=== PATIENT | male | born 1990 | race Caucasian/White ===

== ENCOUNTER 2017-06-04 15:44 | Inpatient (IN) | payer BC, OTHER ==
[~2017-06-04] VITALS: Ht 180.3 cm; Wt 83.9 kg
[2017-06-04 17:10] VITALS: BP 133/75
[2017-06-04] MEDS ORDERED: DICYCLOMINE HCL 20 MG TABLET PO PRN (18:00)
[2017-06-04] MEDS ORDERED: MIRALAX 17 GM POWD.PACK PO PRN (18:00)
[2017-06-04] MEDS ORDERED: CLONIDINE HCL 0.1 MG TABLET PO PRN (18:00)
[2017-06-04] MEDS ORDERED: MAGNESIUM HYDROXIDE 30 ML LIQUID UDC PO PRN (18:00)
[2017-06-04] MEDS ORDERED: ONDANSETRON ODT 4 MG TAB.RAPDIS SL PRN (18:00)
[2017-06-04] MEDS ORDERED: ACETAMINOPHEN 325 MG TABLET PO PRN (18:00)
[2017-06-04] MEDS ORDERED: LORAZEPAM 1 MG TABLET PO PRN (18:00)
[2017-06-04] MEDS ORDERED: MAG HYDROX/AL HYDROX/SIMETH 30 ML LIQUID UDC PO PRN (18:00)
[2017-06-04] MEDS ORDERED: LOPERAMIDE HCL 2 MG CAPSULE PO PRN ×2 (18:00)
[2017-06-04] MEDS ORDERED: BUPRENORPHINE HCL 2 MG TAB.SUBL SL PRN (18:00)
[2017-06-04] MEDS ORDERED: ONDANSETRON 4 MG/2 ML VIAL IM PRN (18:00)
[2017-06-04] MEDS ORDERED: METHOCARBAMOL 750 MG TABLET PO PRN (18:00)
[2017-06-04] MEDS ORDERED: NICOTINE 14 MG/24HR PATCH TD PRN (18:00)
[2017-06-04] MEDS ORDERED: HYDROXYZINE PAMOATE 25 MG CAPSULE PO PRN (18:00)
[2017-06-04] MEDS ORDERED: IBUPROFEN 600 MG TABLET PO PRN (18:00)
[2017-06-04] MEDS ORDERED: NICOTINE POLACRILEX 4 MG GUM-PK OF TEN BC PRN (18:00)
[2017-06-04] MEDS: BUPRENORPHINE HCL 2 MG TAB.SUBL SL SCH ×2 (18:15→21:19)
[2017-06-04 18:19] LABS: *AMPHETAMINE, URINE NEGATIVE (NEGATIVE); *BARBITURATE, URINE NEGATIVE (NEGATIVE); *CANNABINOID, URINE NEGATIVE (NEGATIVE); *COCCAINE, URINE NEGATIVE (NEGATIVE); *OPIATE, URINE POSITIVE (NEGATIVE); *PHENCYCLIDINE SCREEN,URINE NEGATIVE (NEGATIVE)
[2017-06-04 20:00] VITALS: BP 125/73
[2017-06-04] MEDS: GABAPENTIN 300 MG CAPSULE PO SCH (21:18)
[2017-06-04 21:23] LABS: BASOPHILS % (AUTO) 0.7 % (0.0-2.0); EOSINOPHILS # (AUTO) 0.1 K/uL (0.0-0.7); EOSINOPHILS % (AUTO) 1.2 % (0.0-7.0); HEMATOCRIT 50.8 % (36.7-47.1); HEMOGLOBIN 17.4 g/dL (12.5-16.3); LYMPHOCYTES # (AUTO) 1.7 K/uL (20.0-40.0); MEAN CORPUSCULAR HEMOGLOBIN 30.4 uug (23.8-33.4); MEAN CORPUSCULAR HGB CONC 34 g/dL (32.5-36.3); MONOCYTES # (AUTO) 0.8 K/uL (2.0-10.0); MONOCYTES % (AUTO) 11.5 % (0.0-11.0); NEUTROPHILS # (AUTO) 4.4 K/uL (1.8-8.9); NEUTROPHILS % (AUTO) 62.6 % (38.5-71.5); PLATELET COUNT (AUTO) 166 K/uL (152-348)
[2017-06-04 21:30] LABS: ALANINE AMINOTRANSFERASE 31 U/L (16-63); ALKALINE PHOSPHATASE 86 U/L (50-136); ASPARTATE AMINOTRANSFERASE 25 U/L (15-37); BILIRUBIN,TOTAL 0.4 mg/dL (0.2-1.0); CARBON DIOXIDE 34 mmol/L (21-32); CHLORIDE 100 mmol/L (98-107); CREATININE 1.3 mg/dL (0.6-1.3); GLUCOSE 75 mg/dL (74-106); POTASSIUM 4.1 mmol/L (3.5-5.1); TOTAL PROTEIN, SERUM 8.2 g/dL (6.4-8.2); UREA NITROGEN, BLOOD 16 mg/dL (7-18)
[2017-06-04 21:39] LABS: ETHANOL < 3 MG/DL (0-0)
[2017-06-04] MEDS: diphenhydrAMINE 50 MG CAPSULE PO PRN (23:32)
[2017-06-05 00:01] VITALS: BP 122/80
[2017-06-05 04:00] VITALS: BP 132/80
[2017-06-05 08:00] VITALS: BP 97/60
[2017-06-05] MEDS ORDERED: TUBERCULIN,PURIF.PROT.DERIV. 5 TU/0.1 ML TEST ID ONE (09:00)
[2017-06-05] MEDS ORDERED: BUPRENORPHINE HCL 2 MG TAB.SUBL SL SCH (09:00)
[2017-06-05] MEDS: GABAPENTIN 300 MG CAPSULE PO SCH ×3 (09:55→20:57)
[2017-06-05 12:00] VITALS: BP 100/62
[2017-06-05] MEDS: BUPRENORPHINE HCL 2 MG TAB.SUBL SL SCH ×2 (15:34→20:57)
[2017-06-05] MEDS: BACLOFEN 10 MG TABLET PO SCH ×2 (15:34→20:57)
[2017-06-05 16:00] VITALS: BP 117/73
[2017-06-05 20:14] VITALS: BP 133/84
[2017-06-05] MEDS: CLONIDINE HCL 0.1 MG TABLET PO SCH (20:57)
[2017-06-05] MEDS ORDERED: LORAZEPAM 1 MG TABLET PO SCH (21:00)
[2017-06-05] MEDS: diphenhydrAMINE 50 MG CAPSULE PO PRN (23:12)
[2017-06-06 00:17] VITALS: BP 125/59
[2017-06-06 04:41] VITALS: BP 122/64
[2017-06-06 08:00] VITALS: BP 118/64
[2017-06-06 08:06] LABS: HEPATITIS B SURFACE AG Negative (Negative)
[2017-06-06] MEDS: BACLOFEN 10 MG TABLET PO SCH (08:49)
[2017-06-06] MEDS: GABAPENTIN 300 MG CAPSULE PO SCH ×3 (08:49→20:59)
[2017-06-06] MEDS: BUPRENORPHINE HCL 2 MG TAB.SUBL SL SCH ×3 (08:49→20:59)
[2017-06-06] MEDS: CLONIDINE HCL 0.1 MG TABLET PO SCH ×2 (08:49→14:30)
[2017-06-06 12:00] VITALS: BP 112/86
[2017-06-06] MEDS: BACLOFEN 20 MG TABLET PO SCH ×2 (14:29→20:59)
[2017-06-06 16:00] VITALS: BP 101/53
[2017-06-06 20:12] VITALS: BP 107/59
[2017-06-06] MEDS: QUETIAPINE FUMARATE 25 MG TABLET PO SCH (20:58)
[2017-06-06] MEDS: CLONIDINE HCL 0.2 MG TABLET PO SCH (20:58)
[2017-06-07] VITALS (7 sets, daily range): BP systolic 103–126; BP diastolic 50–76
[2017-06-07] MEDS ORDERED: BUPRENORPHINE HCL 2 MG TAB.SUBL SL SCH (09:00)
[2017-06-07] MEDS: QUETIAPINE FUMARATE 25 MG TABLET PO SCH ×3 (09:06→21:30)
[2017-06-07] MEDS: BACLOFEN 20 MG TABLET PO SCH ×3 (09:06→21:29)
[2017-06-07] MEDS: CLONIDINE HCL 0.1 MG TABLET PO SCH ×2 (09:06→14:03)
[2017-06-07] MEDS: GABAPENTIN 300 MG CAPSULE PO SCH ×3 (09:19→21:29)
[2017-06-07] MEDS ORDERED: QUET25TA PO (17:39)
[2017-06-07] MEDS ORDERED: GABA-534 PO ×2 (17:39)
[2017-06-07] MEDS ORDERED: IBUP-1955 PO (17:39)
[2017-06-07] MEDS ORDERED: CLON0.1T14 PO (17:39)
[2017-06-07] MEDS ORDERED: DICY20TA28 PO (17:39)
[2017-06-07] MEDS ORDERED: HYDR-3895 PO (17:39)
[2017-06-07] MEDS ORDERED: BACL20TA PO (17:39)
[2017-06-07] MEDS ORDERED: DIPH50CA37 PO (17:39)
[2017-06-07] MEDS: CLONIDINE HCL 0.2 MG TABLET PO SCH (21:29)
[2017-06-08] MEDS: BACLOFEN 20 MG TABLET PO SCH (08:10)
[2017-06-08] MEDS: CLONIDINE HCL 0.1 MG TABLET PO SCH (08:10)
[2017-06-08] MEDS: GABAPENTIN 300 MG CAPSULE PO SCH (08:10)
[2017-06-08 08:20] VITALS: BP 100/61
[2017-06-08] MEDS ORDERED: QUETIAPINE FUMARATE 25 MG TABLET PO PRN (09:00)
== END 2017-06-08 09:37 | disposition other institution (70) | DRG 895 ==
LOC: SRC 15:44
PROVIDERS: ADMIT Internal Medicine; ATTEND Internal Medicine
PROC: HZ2ZZZZ Detoxification Services for Substance Abuse Treatment (ICD-10-PCS; principal; 2017-06-04)
PROC: HZ41ZZZ Group Counseling for Substance Abuse Treatment, Behavioral (ICD-10-PCS; 2017-06-07)
DX: F11.23 Opioid dependence with withdrawal (principal); E87.3 Alkalosis; F17.210 Nicotine dependence, cigarettes, uncomplicated; Z91.89 Other specified personal risk factors, not elsewhere classified; Z81.1 Family history of alcohol abuse and dependence; F41.9 Anxiety disorder, unspecified; G47.00 Insomnia, unspecified; F15.10 Other stimulant abuse, uncomplicated; E86.0 Dehydration
CPT/HCPCS: 36415; 70030-TC; 80307; 80361; 83735; 85025; 86580; 86592; 86705; 86803; 87340; 87806; A4663; G0480; Q0163

== ENCOUNTER 2017-09-11 08:12 | Inpatient (IN) | payer BC, OTHER ==
[~2017-09-11] VITALS: Ht 180.3 cm; Wt 82.6 kg
[~2017-09-11 08:12] MED LIST: BACL20TA PO; CLON0.1T14 PO; DICY20TA28 PO; DIPH50CA37 PO; GABA-534 PO; HYDR-3895 PO; IBUP-1955 PO; QUET25TA PO
--- NOTE | 2017-09-11 17:10 | NUR ---
INTAKE ASSESSMENT Patient is 27 year old male alert oriented x4 admitted for Heroin Withdrawal. Vital signs B/P 118/69, HR-87, RR-17, TEMP-98.4, SPO2-98%, PAIN -0/10. Patient denies any history of seizure. Patient did not bring any medication from home with him. Patient is avoidant and unable to make eye contact. Patient was seen by Dr. Rucker. Educated patient about unit protocol. Will be admitted on the third floor.
--- NOTE | 2017-09-11 17:20 | NUR ---
ADMISSION NOTE ALLERGY-NKA STATUS-FULL CODE HEIGHT-5'11 WEIGHT-182IBS COWS-5 PCP-NONE PMH-NONE Patient is 27 year old male patient admitted for Heroin withdrawal. Patient is alert and oriented X4, full code with NKA. Vital signs: WNL. Patient denies any SOB and chest pain. Pt has a flat affect, anxious, depressed, labile, is disheveled. Patient presents anhedonia, dysphoria. Denies sweating, n/v/d, stuffy nose, hallucinations at this time. Denies suicidal and homicidal ideation. Patient did not bring any home medications. Pt states that he attended a detox called [facility] in [place] 2 years ago and [facility] in May 2017 that he has had a period of sobriety for 6 months over 4 years ago. Patient states, "I really want to get sober." Patient verbalized he had multiple attempts at sobriety and struggled to stay sober. Patient also verbalized he wants a better life and states he is committed to the process. Substance use history per patient report: 1) Heroin - Patient reports using 1 gm for 2 months daily on regular basis, last use was 09/10/17 (used 1 gm via IV), Patients skin is intact. Educated pt on treatment plan and medication regimen. Educated patient on unit rules. Safety measures in place. Will continue to monitor.
[2017-09-11] MEDS ORDERED: LOPERAMIDE HCL 2 MG CAPSULE PO PRN ×2 (17:30)
[2017-09-11] MEDS ORDERED: ONDANSETRON ODT 4 MG TAB.RAPDIS SL PRN (17:30)
[2017-09-11] MEDS ORDERED: ONDANSETRON 4 MG/2 ML VIAL IM PRN (17:30)
[2017-09-11] MEDS ORDERED: DICYCLOMINE HCL 20 MG TABLET PO PRN (17:30)
[2017-09-11] MEDS ORDERED: BUPRENORPHINE HCL 2 MG TAB.SUBL SL PRN (17:30)
[2017-09-11] MEDS ORDERED: diphenhydrAMINE 50 MG CAPSULE PO PRN (17:30)
[2017-09-11] MEDS ORDERED: HYDROXYZINE PAMOATE 25 MG CAPSULE PO PRN (17:30)
[2017-09-11] MEDS ORDERED: ACETAMINOPHEN 325 MG TABLET PO PRN (17:30)
[2017-09-11] MEDS ORDERED: IBUPROFEN 600 MG TABLET PO PRN (17:30)
[2017-09-11] MEDS ORDERED: MIRALAX 17 GM POWD.PACK PO PRN (17:30)
[2017-09-11] MEDS ORDERED: MAGNESIUM HYDROXIDE 30 ML LIQUID UDC PO PRN (17:30)
[2017-09-11] MEDS ORDERED: METHOCARBAMOL 750 MG TABLET PO PRN (17:30)
[2017-09-11] MEDS ORDERED: CLONIDINE HCL 0.1 MG TABLET PO PRN (17:30)
[2017-09-11] MEDS ORDERED: LORAZEPAM 1 MG TABLET PO PRN (17:30)
--- NOTE | 2017-09-11 18:55 | NUR ---
END OF SHIFT NOTE Gave report to night nurse, 27 year old male admitted for Heroin withdrawal. Patient currently not on any taper but PRN'S available for increased s/s of withdrawal. Patient currently on room restriction for UDS not provided. Vital signs WNL. All safety measures in place. Patient endorsed to night nurse in stable condition.
--- NOTE | 2017-09-11 19:30 | NUR ---
Start of Shift Pt is a 27 y/o male admitted today, 09/11/17 for medically managed withdrawal/detox from Heroin. Pt is found in bed, supine with HOB 45 degrees, watching tv. Pt cooperative, able to answer questions and respond appropriately. Appears depressed, worried with avoidant eye contact, voice is low. U/A sample requested, says that within hour he expects to provide it, room restrictions will end at that time. No scheduled meds at this time for evening, PRNs available. No c/os at this time. Will continue to monitor and promptly attend to all pt needs.
[2017-09-11 20:00] VITALS: BP 108/63
[2017-09-11 20:09] LABS: BASOPHILS # (AUTO) 0.1 K/uL (0.0-8.0); BASOPHILS % (AUTO) 0.8 % (0.0-2.0); EOSINOPHILS # (AUTO) 0.2 K/uL (0.0-0.7); EOSINOPHILS % (AUTO) 3.5 % (0.0-7.0); HEMATOCRIT 46.2 % (36.7-47.1); LYMPHOCYTES # (AUTO) 1.8 K/uL (20.0-40.0); LYMPHOCYTES % (AUTO) 28.4 % (20.5-51.5); MEAN CORPUSCULAR HEMOGLOBIN 30.4 uug (23.8-33.4); MEAN CORPUSCULAR HGB CONC 35 g/dL (32.5-36.3); MEAN CORPUSCULAR VOLUME 87.9 fL (73.0-96.2); MONOCYTES % (AUTO) 15.4 % (0.0-11.0); NEUTROPHILS # (AUTO) 3.2 K/uL (1.8-8.9); NEUTROPHILS % (AUTO) 51.9 % (38.5-71.5); PLATELET COUNT (AUTO) 141 K/uL (152-348); RED BLOOD CELL COUNT(AUTO) 5.26 MIL/uL (4.06-5.63); WHITE BLOOD COUNT (AUTO) 6.2 K/uL (3.6-10.2)
[2017-09-11 20:19] LABS: ALANINE AMINOTRANSFERASE 33 U/L (16-63); ALKALINE PHOSPHATASE 82 U/L (50-136); ASPARTATE AMINOTRANSFERASE 26 U/L (15-37); BILIRUBIN,TOTAL 0.6 mg/dL (0.2-1.0); CARBON DIOXIDE 31 mmol/L (21-32); CHLORIDE 103 mmol/L (98-107); CREATININE 1.3 mg/dL (0.6-1.3); GLUCOSE 113 mg/dL (74-106); POTASSIUM 3.8 mmol/L (3.5-5.1); UREA NITROGEN, BLOOD 22 mg/dL (7-18)
[2017-09-11 20:22] LABS: ETHANOL < 3 MG/DL (0-0)
[2017-09-11 20:28] LABS: BAND % (MANUAL) 6 % (0-10); EOSINOPHILS % (MANUAL) 3 % (0-8); LYMPHOCYTES % (MANUAL) 28 % (20-40); MONOCYTES % (MANUAL) 13 % (2-10); NEUTROPHILS % (MANUAL) 50 % (42-75)
--- NOTE | 2017-09-11 21:30 | NUR ---
U/A Pt awakened and asked if able to provide U/A sample. Attempt made by pt but unable to provide at this time. Pt returns to bed and proceeds to eat, fluid intake encouraged but no attempt at fluids made. Will continue to monitor, seeking U/A sample, evening Subutex and Ativan withheld until sample provided, and promptly attending to all pt needs
[2017-09-11] MEDS ORDERED: LORAZEPAM 1 MG TABLET PO SCH (22:00)
[2017-09-11] MEDS ORDERED: BUPRENORPHINE HCL 2 MG TAB.SUBL SL SCH (22:00)
[2017-09-12] VITALS: BP 118/62
[2017-09-12 04:00] VITALS: BP 125/82
--- NOTE | 2017-09-12 06:40 | NUR ---
End of Shift Pt is a 27 y/o male admitted today, 09/11/17 for medically managed withdrawal/detox from Heroin. Pt unable to provide U/A. Pt attempted on 2 occassions to provide U/A but was unsuccessful on both. Scheduled Subutex/Ativan held. PRN meds for shift were none . 0400 COWS 3, HR 58 with BP 125/82. Pt slept for 8 hours, with 500 intake, 0 voids and 0 BMs. Will continue to monitor and promptly attend to all pt needs.
--- NOTE | 2017-09-12 07:40 | NUR ---
START OF SHIFT NOTE Received report from night nurse, 27 year old male admitted for Heroin withdrawal. Per endorsement patient did not receive any PRN'S and slept for 8 hours, Last COWS was-3. Patient cont with room restriction and awaiting for UA for urine drug screen. Encourage PO fluids as tolerated. Received patient alert awake anxious agitated, body aches, restless, bilateral hand tremors noted. Patient is due for schedule medications. Educated patient with current plan of care of medications regimen and importance of attending groups and activities with good verbal understanding. Safety measures in place. Will cont with plan of care.
[2017-09-12 08:00] VITALS: BP 131/67
[2017-09-12] MEDS ORDERED: TUBERCULIN,PURIF.PROT.DERIV. 5 TU/0.1 ML TEST ID ONE (09:00)
[2017-09-12] MEDS: BUPRENORPHINE HCL 2 MG TAB.SUBL SL SCH ×3 (09:19→20:42)
[2017-09-12] MEDS: GABAPENTIN 300 MG CAPSULE PO SCH ×3 (09:19→20:42)
[2017-09-12 09:57] LABS: *AMPHETAMINE, URINE POSITIVE (NEGATIVE); *BARBITURATE, URINE NEGATIVE (NEGATIVE); *CANNABINOID, URINE NEGATIVE (NEGATIVE); *COCCAINE, URINE NEGATIVE (NEGATIVE); *OPIATE, URINE POSITIVE (NEGATIVE); *PHENCYCLIDINE SCREEN,URINE NEGATIVE (NEGATIVE)
[2017-09-12 12:00] VITALS: BP 119/72
[2017-09-12 16:00] VITALS: BP 101/62
--- NOTE | 2017-09-12 19:10 | NUR ---
END OF SHIFT NOTE Gave report to night nurse, Patient admitted for Heroin withdrawal and presented with anxiety, agitation, restless, runny nose, yawning, body aches, bilateral hand tremors noted. Patient started on Subutex taper tolerated well. Patient did not receive any PRN during shift. Vital signs remained WNL. Skin intact warm and dry to touch. Patient rested in his room most of the shift. Encouraged patient to attend groups and activities to learn new coping skills. Encourage PO fluids as tolerated. All safety measures in place. Patient endorsed to night nurse in stable condition.
--- NOTE | 2017-09-12 19:30 | NUR ---
START OF SHIFT Pt is a 27 y/o male admitted on 09/11/17 for opiate withdrawal. Pt is on a 5 day Subutex taper that started on 09/12/17, tolerating well. Last COWS 11 and no PRNs administered during day shift. Upon assessment pt presents with anxiety, restlessness, sweats, runny nose, teary eyes and is withdrawn. Medications due. Safety measures in place. Call light within reach. Will continue to monitor.
[2017-09-12 20:00] VITALS: BP 107/64
[2017-09-12] MEDS: QUETIAPINE FUMARATE 25 MG TABLET PO SCH (20:42)
--- NOTE | 2017-09-12 23:45 | NUR ---
Continuation of Care Patient received. patient is in bed sleeping. breathing even and non labored. Per endorsement. patient continues on a modified 5 day Subutex taper. No PRN medications administered. All routine medications administered as ordered. Last noted COWS 8. All needs attended to promptly. Will continue plan of care as ordered.
[2017-09-13 00:24] VITALS: BP 97/58
[2017-09-13 04:30] VITALS: BP 99/60
--- NOTE | 2017-09-13 07:13 | NUR ---
End of Shift Patient is in bed sleeping. Breathing even and non labored. Patient continues on a modified 5 day Subutex taper. No PRN medications administered. All routine medications administered as ordered. Last noted COWS 8. All needs attended to promptly. Will endorse to continue plan of care as ordered.
--- NOTE | 2017-09-13 07:30 | NUR ---
Start of Shift Notes: Received patient in his room. Laying in bed. Eyes closed. Breathing even and unlabored. Arousable when his name is called. Appears restless while in bed. Patient states "Im alright." Patient is a 27 year old male admitted for opiate withdrawal who was placed on 5-day Subutex taper. No PRNs given during the night. Last COWS 8, Slept for 8 hours. Educated patient on his current plan of care for the day and his medication regimen. Encouraged oral fluid intake and encouraged group participation to learn new skills to prevent relapse. Will continue to monitor.
[2017-09-13 08:00] VITALS: BP 116/55
[2017-09-13] MEDS ORDERED: BUPRENORPHINE HCL 2 MG TAB.SUBL SL SCH (09:00)
[2017-09-13] MEDS: GABAPENTIN 300 MG CAPSULE PO SCH ×3 (09:01→21:06)
[2017-09-13 09:07] LABS: HEPATITIS B SURFACE AG Negative (Negative)
[2017-09-13] MEDS ORDERED: KETOROLAC TROMETHAMINE 30 MG INJ IM PRN (11:15)
[2017-09-13 12:00] VITALS: BP 109/57
[2017-09-13] MEDS: BUPRENORPHINE HCL 2 MG TAB.SUBL SL SCH ×2 (14:03→21:06)
--- NOTE | 2017-09-13 16:00 | NUR ---
Transfer of Care: Care transferred to receiving nurse at this time. All pertinent information discussed. Patient is currently in his room at this time. VS stable. Last COWS 8 at 1400. All due medications received. No PRN medications given. Will continue to monitor.
--- NOTE | 2017-09-13 16:01 | NUR ---
ASSUMED CARE Assumed care for patient from nurse, all pertinent information was discussed. will continue to monitor closely. safety measures in place.
[2017-09-13 17:26] VITALS: BP 111/58
--- NOTE | 2017-09-13 18:59 | NUR ---
END OF SHIFT Patient continues under close observation, continues on 5 day Subutex taper, currently on day 2 of taper. per staff nurse, initial cow score of: 12, presenting with: restlessness, facial flushing, pupils dilation, myalgia, runny nose and tearing. Patient with last cow score of: 8. Patient with fair appetite. Patient received no PRN medication during shift. Patient encouraged participation in therapy sessions, patient denies any SI/HI, Patient was encouraged to verbalize feelings, encouraged to develop coping skills and utilization of non pharmacological interventions. Patients safety measures are in place. call light kept within reach, will continue to monitor. Endorsed to lining strap closer nurse, all pertinent information discussed.
--- NOTE | 2017-09-13 19:15 | NUR ---
Start of Shift Note: Patient is a 27 y.o male admitted on 09/11/17 for medically supervised withdrawal from Heroin. Patient is alert & oriented x4. Patient is abulatory with a steady gait. Patient appears flushed, has a flat affect, anxious & irritable. Patient presents with resetlessness, mild discomfort, sweating & tremors. Pt continues on a Subutex taper and tolerating well. Last COWS 8. No PRN medications received during day shift. Patient stable at this time. Educated patient of current plan of care. Safety measures placed. Bed locked in lowest position. Both side rails up. Call light within pt's reach. Will continue to monitor patient.
[2017-09-13 20:00] VITALS: BP_SYST 113; BP_SYST 115; BP_DIAS 62; BP_DIAS 72
[2017-09-13] MEDS: CLONIDINE HCL 0.1 MG TABLET PO SCH (21:06)
[2017-09-13] MEDS: QUETIAPINE FUMARATE 25 MG TABLET PO SCH (21:06)
--- NOTE | 2017-09-14 07:06 | NUR ---
End of Shift Note: Patient is a 27 y.o male admitted on 09/11/17 for medically supervised withdrawal from heroin. Pt continues on his Subutex taper and tolerated well. . Patient presented with flushed face, restlessness, anxiety, agitation, mild discomfort, sweating & tremors. No PRN medications received during my shift Last COWS 7. Pt stable at this time. Vitals noted WNL. Continue to closely monitor s/s of withdrawal. Encourage pt to increase fluid intake. Fluid intake: 1855 ml, Voided 3x with no bowel movement. Pt slept for a total of 7 hours. All needs attended & met. Safety measures in place. Will endorse pt to day shift nurse.
[2017-09-14 08:00] VITALS: BP 104/60
--- NOTE | 2017-09-14 08:10 | NUR ---
START OF SHIFT: RECEIVED PT A/O X 4. HE PRESENTS WITH ANXIOUS MOOD AND GUARDED AFFECT. HE REPORTS ANXIETY,SWEATS AND MILD BODY ACHES. COWS 4. SUBUTEX TAPER IN PROGRESS. COWS 4.ENCOURAGED GROUP ATTENDANCE TO IMPROVE COPING SKILLS AND PREVENT RELAPSE. WILL CONTINUE TO MONITOR AND MANAGE S/S OF W/D.
[2017-09-14] MEDS: CLONIDINE HCL 0.1 MG TABLET PO SCH ×2 (09:00→21:06)
[2017-09-14] MEDS: BUPRENORPHINE HCL 2 MG TAB.SUBL SL SCH ×3 (09:44→21:06)
[2017-09-14] MEDS: GABAPENTIN 300 MG CAPSULE PO SCH ×3 (09:44→21:06)
[2017-09-14 12:00] VITALS: BP 109/58
[2017-09-14 16:00] VITALS: BP 133/79
[2017-09-14 16:15] VITALS: BP 135/92
--- NOTE | 2017-09-14 19:08 | NUR ---
END OF SHIFT: PT CONTINUES ON SUBUTEX TAPER TO MANAGE S/S OF W/D WHICH INCLUDE ANXIETY AND BODY ACHES.LAST COWS 4 HE STATES THE DETOX MED IS EFFECTIVE AND NO PRNS GIVEN. PT ISOLATED IN HIS ROOM AND DID NOT ATTEND GROUPS. WHEN ASKED WHY HE STATES" I HAVE BEEN HERE BEFORE". EDUCATED PT ON IMPORTANCE OF EDUCATION REGARDING RELAPSE PREVENTION AND OFFERED SUPPORT. WILL PASS SHIFT REPORT TO ONCOMING NIGHT NURSE.
--- NOTE | 2017-09-14 19:15 | NUR ---
Start of Shift Note: Patient is a 27 y.o male admitted on 09/11/17 for medically supervised withdrawal from Heroin. Patient is alert & oriented x4. Patient is ambulatory with a steady gait. Patient contines with a flat affect, anxious & irritable mood. Patient presents with restlessness, mild discomfort, stomach cramps & tremors. Pt continues on a Subutex taper and tolerating well. Last COWS 4. No PRN medications received during day shift. Pt did not attend groups today. Will continue to encourage patient to attend group activities to learn/develop new coping skills to prevent relapse. Patient stable at this time. Educated patient of current plan of care and medication regimen for the night. Safety measures placed. Bed locked in lowest position. Both side rails up. Call light within pt's reach. Will continue to monitor patient.
[2017-09-14 20:00] VITALS: BP 144/59
[2017-09-14] MEDS: QUETIAPINE FUMARATE 25 MG TABLET PO SCH (21:06)
--- NOTE | 2017-09-15 07:21 | NUR ---
End of Shift Note: Pt still asleep at this time. Patient remained alert & oriented x4. Pt continues on his Subutex taper and tolerating well. Patient continues with a flat affect, anxious/irritable mood, restlessness, mild discomfort & stomach cramps. Pt reported that detox taper medications effective to reduce withdrawal symptoms. No PRN medications received during my shift Last COWS 5. Continue to closely monitor s/s of withdrawal. Will continue to encourage pt to attend groups to learn/develop new copings kills to prevent relapse. Pt stable at this time. Vitals noted WNL. Fluid intake: 1300 ml, Voided 2x with 1x bowel movement. Pt slept for a total of 5 hours. All needs attended & met. Safety measures in place. Will endorse pt to day shift nurse.
--- NOTE | 2017-09-15 07:30 | NUR ---
Start of shift- Pt asleep, responds to voice and light touch. Resp even and unlabored. Pt on 5 day (day 4) Subutex taper and tolerating well. Patient continues with a flat affect, anxious mood, restlessness, mild discomfort & stomach cramps. Pt reported that detox taper medications effective to reduce withdrawal symptoms. No PRN medications given last night. Last COWS 5. Will continue to encourage pt to attend groups to learn/develop new copings kills to prevent relapse. Pt slept for a total of 5 hours. Safety measures in place. Will continue to closely monitor s/s of withdrawal.
[2017-09-15 08:00] VITALS: BP 104/64
[2017-09-15] MEDS: GABAPENTIN 300 MG CAPSULE PO SCH ×3 (08:45→21:14)
[2017-09-15] MEDS: CLONIDINE HCL 0.1 MG TABLET PO SCH ×2 (08:45→21:15)
[2017-09-15] MEDS: BUPRENORPHINE HCL 2 MG TAB.SUBL SL SCH ×2 (08:45→21:15)
[2017-09-15 12:00] VITALS: BP 109/50
[2017-09-15 16:00] VITALS: BP 102/56
--- NOTE | 2017-09-15 18:45 | NUR ---
End of shift- Pt A&OX4. Resp even and unlabored. Pt on 5 day Subutex taper (day 4) and tolerating well. Patient continues with a flat affect, withdrawn and depressed mood. Pt withdrawn and isolative. Encourage pt to attend groups to learn/develop new copings kills to prevent relapse. Did not attend group therapy today. No PRN medications given. Last COWS 6. Pt FULL CODE, NKA. Adequate PO fluid intake 2750 ml, void X 4, BM x 1. Safety measures in place. Will continue to closely monitor s/s of withdrawal. Endorsed to PM shift.
--- NOTE | 2017-09-15 19:15 | NUR ---
Start of Shift Note: Patient is a 27 y.o male admitted for medically supervised withdrawal from Heroin. Patient noted in bed watching TV. Patient is alert & oriented x4. Patient continues with a flat affect, anxious & irritable mood. Patient presents with mild discomfort & stuffy nose. Pt continues on a Subutex taper, and he is on day 4 on her taper and tolerating well. Last COWS 6 @ 1600. No PRN medications received during day shift. Pt did not attend groups again today. Patient is isolative and stayed in his room most of the time during the day. Will continue to encourage patient to attend group activities to learn/develop new coping skills to prevent relapse. Patient stable at this time. Educated patient of current plan of care and medication regimen for the night. Safety measures placed. Will continue to monitor patient.
[2017-09-15 20:00] VITALS: BP 114/69
[2017-09-15] MEDS: QUETIAPINE FUMARATE 25 MG TABLET PO SCH (21:15)
--- NOTE | 2017-09-16 07:13 | NUR ---
End of Shift Note: Pt still asleep at this time. Patient remained alert & oriented x4. Pt continues on his Subutex taper and tolerating well. Pt reported that detox taper medications effective to reduce withdrawal symptoms. No PRN medications received during my shift. Last COWS 5. Continue to closely monitor s/s of withdrawal.Patient continues with a flat affect, anxious, depressed and withdrawn. Patient is isolative and stayed in his room most of the time. Will continue to encourage pt to attend groups to learn/develop new coping skills to prevent relapse. Pt stable at this time. Vitals noted WNL. Fluid intake: 855 ml, Voided 1x with no bowel movement. Pt slept for a total of 7 hours. All needs attended & met. Safety measures in place. Will endorse pt to day shift nurse.
--- NOTE | 2017-09-16 07:31 | NUR ---
Start of shift- Pt asleep, responds to voice and light touch. Resp even and unlabored. Pt on 5 day Subutex taper and tolerating well. Patient continues with a flat affect, anxious mood, restlessness, mild discomfort & stomach cramps. Pt reported that detox taper medications effective to reduce withdrawal symptoms. No PRN medications given last night. Last COWS 5. Will continue to encourage pt to attend groups to learn/develop new copings kills to prevent relapse. Pt slept for a total of 7 hours. Pt FULL CODE, NKA. Safety measures in place. Will continue to closely monitor s/s of withdrawal.
[2017-09-16 08:00] VITALS: BP 100/50
[2017-09-16] MEDS ORDERED: BUPRENORPHINE HCL 2 MG TAB.SUBL SL SCH (09:00)
[2017-09-16] MEDS: CLONIDINE HCL 0.1 MG TABLET PO SCH ×2 (09:01→21:07)
[2017-09-16] MEDS: GABAPENTIN 300 MG CAPSULE PO SCH ×3 (09:01→21:07)
[2017-09-16 12:00] VITALS: BP 131/69
[2017-09-16 16:00] VITALS: BP 119/65
--- NOTE | 2017-09-16 18:29 | NUR ---
End of shift Patient is a 27 year old male admitted medically supervised withdrawal of Opioid. Pt completed 5 day Subutex taper and tolerated well. Pt to be discharged tomorrow to [facility]. Patient continues with a flat affect, withdrawn, isolative and depressed mood. Encouraged pt to attend groups to learn/develop new copings kills to prevent relapse. Did not attend group therapy today. No PRN medications given. Last COWS 4. Pt FULL CODE, NKA. Adequate PO fluid intake 1851 ml, void X 3, BM x 1. Safety measures in place. Will continue to closely monitor s/s of withdrawal. Endorsed to PM shift.
[2017-09-16] MEDS ORDERED: IBUP-1955 PO (18:40)
[2017-09-16] MEDS ORDERED: METH-406 PO (18:40)
[2017-09-16] MEDS ORDERED: HYDR-3895 PO (18:40)
[2017-09-16] MEDS ORDERED: GABA-534 PO ×2 (18:40)
[2017-09-16] MEDS ORDERED: DIPH50CA37 PO (18:40)
[2017-09-16] MEDS ORDERED: CLON0.1T14 PO (18:40)
--- NOTE | 2017-09-16 19:30 | NUR ---
START OF SHIFT Pt is a 27 year old male admitted for medically supervised withdrawal from Opioid use. Pt completed 5 day Subutex taper and is scheduled to be discharged tomorrow to [facility]. Pt received in room,pleasant on approach.A/A/O X 3. Encouraged continue with new copings kills to prevent relapse. No PRN medications were given during the day. Last COWS 4. Pt is FULL CODE, NKA. Adequate PO fluids encouraged.Safety measures in place,call light is within reach. Will continue to monitor.
[2017-09-16 20:00] VITALS: BP 128/65
[2017-09-16] MEDS: QUETIAPINE FUMARATE 25 MG TABLET PO SCH (21:07)
--- NOTE | 2017-09-17 | NUR ---
COWS DEFERRED Pt is comfortably sleeping in bed;respirations 16, even and non labored,safety measures in place with call light within reach;v/s refused;will continue to monitor.
--- NOTE | 2017-09-17 04:00 | NUR ---
COWS DEFERRED Pt remains comfortably sleeping in bed;respirations 16, even and non labored,safety measures in place with call light within reach; v/s refused;will continue to monitor.
--- NOTE | 2017-09-17 06:57 | NUR ---
END OF SHIFT Pt is a 27 year old male admitted for medically supervised withdrawal from Opioid use. Pt completed 5 day Subutex taper and is scheduled to be discharged today to [facility]. Pt is A/O X 3. Encouraged to continue with new copings skills to prevent relapse. No PRN medications were given during the night. Last COWS 4. Pt FULL CODE, NKA. Adequate PO fluids encouraged.Pt slept all night without any problem.He slept 6 hrs,fluid intake was 1500 mls,voided x 2.Safety measures in place,call light is within reach. Will continue to monitor.
--- NOTE | 2017-09-17 07:46 | NUR ---
START OF SHIFT: RECEIVED PT A/O X 4. HE PRESENTS WITH ANXIOUS MOOD AND GUARDED AFFECT. HE REPORTS SOME ANXIETY THIS AM . SUBUTEX TAPER COMPLETED YESTERDAY. COWS 2. DISCHARGE PLANNING IN PROGRESS FOR THIS AM. PT STATES HE FEELS MOTIVATED TO STAY CLEAN AND SOBER AND IS GOING TO A RTC . WILL CONTINUE WITH DISCHARGE PROCESS.
[2017-09-17 08:00] VITALS: BP 102/52
[2017-09-17] MEDS: GABAPENTIN 300 MG CAPSULE PO SCH (08:38)
[2017-09-17] MEDS: CLONIDINE HCL 0.1 MG TABLET PO SCH (08:38)
--- NOTE | 2017-09-17 09:35 | NUR ---
DISCHARGE: PT IS A/O X 4. HE DENIES S/I AND H/I. HE STATES HE FEELS ENTHUSIASTIC TOWARD RECOVERY. BELONGINGS RETURNED. EDUCATED PT ON DISCHARGE MEDS AND INSTRUCTIONS. PT EXPRESSED VERBAL UNDERSTANDING OF EDUCATION . TOOL MAINTENANCE WORKER ESCORTED PT TO [facility] WHERE HE WAS TRANSPORTED BY [employer] TO [facility] AT 0933.
--- NOTE | 2017-09-17 09:37 | NUR ---
DISCHARGE: PT IS A/O X 4. HE DENIES S/I AND H/I. HE STATES HE FEELS ENTHUSIASTIC TOWARD RECOVERY. BELONGINGS RETURNED. EDUCATED PT ON DISCHARGE MEDS AND INSTRUCTIONS. PT EXPRESSED VERBAL UNDERSTANDING OF EDUCATION . RETAIL DIRECTOR ESCORTED PT TO [facility] WHERE HE WAS TRANSPORTED BY MARCELINA GOVEA TO [facility] AT 0935. Addendum: 09/17/17 at 0949 by AKIKO SMITH RN DISREGARD LAST DISCHARGE NOTE
== END 2017-09-17 09:33 | disposition other institution (70) | DRG 895 ==
LOC: SRC 16:58
PROVIDERS: ADMIT Internal Medicine; ATTEND Internal Medicine
PROC: HZ2ZZZZ Detoxification Services for Substance Abuse Treatment (ICD-10-PCS; principal; 2017-09-11)
PROC: HZ51ZZZ Individual Psychotherapy for Substance Abuse Treatment, Behavioral (ICD-10-PCS; 2017-09-13)
DX: F11.23 Opioid dependence with withdrawal (principal); D69.6 Thrombocytopenia, unspecified; F17.210 Nicotine dependence, cigarettes, uncomplicated; G47.00 Insomnia, unspecified; E86.0 Dehydration; F15.10 Other stimulant abuse, uncomplicated; F41.9 Anxiety disorder, unspecified; R73.9 Hyperglycemia, unspecified; Z81.1 Family history of alcohol abuse and dependence; Z91.89 Other specified personal risk factors, not elsewhere classified; Z79.899 Other long term (current) drug therapy; F32.9 Major depressive disorder, single episode, unspecified
CPT/HCPCS: 36415; 70030-TC; 80307; 80324; 80361; 83735; 85025; 86580; 86592; 86705; 86803; 87340; 87806; A4663; G0480

== ENCOUNTER 2017-12-25 18:53 | Inpatient (IN) | payer BC, OTHER ==
[~2017-12-25] VITALS: Ht 180.3 cm; Wt 81.6 kg
[~2017-12-25 18:53] MED LIST changes: -BACL20TA PO; -DICY20TA28 PO; +METH-406 PO
[2017-12-25 20:00] VITALS: BP 116/67
[2017-12-25] MEDS ORDERED: diphenhydrAMINE 50 MG CAPSULE PO PRN (20:15)
[2017-12-25] MEDS ORDERED: MAGNESIUM HYDROXIDE 30 ML LIQUID UDC PO PRN (20:15)
[2017-12-25] MEDS ORDERED: ONDANSETRON 4 MG/2 ML VIAL IM PRN (20:15)
[2017-12-25] MEDS ORDERED: ONDANSETRON ODT 4 MG TAB.RAPDIS SL PRN (20:15)
[2017-12-25] MEDS ORDERED: MAG HYDROX/AL HYDROX/SIMETH 30 ML LIQUID UDC PO PRN (20:15)
[2017-12-25] MEDS ORDERED: ACETAMINOPHEN 325 MG TABLET PO PRN (20:15)
[2017-12-25] MEDS ORDERED: DICYCLOMINE HCL 20 MG TABLET PO PRN (20:15)
[2017-12-25] MEDS ORDERED: LOPERAMIDE HCL 2 MG CAPSULE PO PRN ×2 (20:15)
[2017-12-25] MEDS ORDERED: MIRALAX 17 GM POWD.PACK PO PRN (20:15)
[2017-12-25] MEDS ORDERED: CLONIDINE HCL 0.1 MG TABLET PO PRN (20:15)
[2017-12-25] MEDS ORDERED: BUPRENORPHINE HCL 2 MG TAB.SUBL SL PRN (20:15)
[2017-12-25] MEDS ORDERED: HYDROXYZINE PAMOATE 25 MG CAPSULE PO PRN (20:15)
[2017-12-25 20:28] LABS: BASOPHILS # (AUTO) 0.1 K/uL (0.0-8.0); BASOPHILS % (AUTO) 1.1 % (0.0-2.0); EOSINOPHILS # (AUTO) 0.2 K/uL (0.0-0.7); EOSINOPHILS % (AUTO) 3.5 % (0.0-7.0); HEMOGLOBIN 15.6 g/dL (12.5-16.3); LYMPHOCYTES # (AUTO) 2.3 K/uL (20.0-40.0); LYMPHOCYTES % (AUTO) 37.9 % (20.5-51.5); MEAN CORPUSCULAR HEMOGLOBIN 30.1 uug (23.8-33.4); MEAN CORPUSCULAR HGB CONC 34 g/dL (32.5-36.3); MEAN CORPUSCULAR VOLUME 88.9 fL (73.0-96.2); MONOCYTES # (AUTO) 0.6 K/uL (2.0-10.0); MONOCYTES % (AUTO) 10.4 % (0.0-11.0); NEUTROPHILS # (AUTO) 2.8 K/uL (1.8-8.9); NEUTROPHILS % (AUTO) 47.1 % (38.5-71.5); PLATELET COUNT (AUTO) 179 K/uL (152-348); RED BLOOD CELL COUNT(AUTO) 5.17 MIL/uL (4.06-5.63)
[2017-12-25 20:33] LABS: ETHANOL < 3 MG/DL (0-0)
[2017-12-25 20:39] LABS: ALANINE AMINOTRANSFERASE 29 U/L (16-63); ALKALINE PHOSPHATASE 69 U/L (50-136); AMYLASE 69 U/L (25-115); ASPARTATE AMINOTRANSFERASE 23 U/L (15-37); BILIRUBIN,TOTAL 0.4 mg/dL (0.2-1.0); CARBON DIOXIDE 33 mmol/L (21-32); CHLORIDE 104 mmol/L (98-107); CREATININE 1.3 mg/dL (0.6-1.3); GLUCOSE 85 mg/dL (74-106); LIPASE 124 U/L (73-393); POTASSIUM 3.9 mmol/L (3.5-5.1); TOTAL PROTEIN, SERUM 7.1 g/dL (6.4-8.2); UREA NITROGEN, BLOOD 19 mg/dL (7-18)
[2017-12-25 20:47] LABS: THYROID STIMULATING HORMONE 0.351 mIU/mL (0.358-3.740)
[2017-12-25] MEDS ORDERED: 5 DAY TAPER BUPRENORPHINE -SERENITY PROTOCOL SL PRN (21:15)
[2017-12-25] MEDS ORDERED: CITA20TA16 PO (21:47)
[2017-12-25] MEDS ORDERED: QUET100T PO (21:47)
[2017-12-26] VITALS: BP 136/84
[2017-12-26] MEDS: METHOCARBAMOL 750 MG TABLET PO PRN ×2 (01:19→21:54)
[2017-12-26] MEDS ORDERED: TRAZODONE 50 MG TABLET PO ONE (01:30)
[2017-12-26 02:01] LABS: *AMPHETAMINE, URINE NEGATIVE (NEGATIVE); *BARBITURATE, URINE NEGATIVE (NEGATIVE); *CANNABINOID, URINE NEGATIVE (NEGATIVE); *COCCAINE, URINE NEGATIVE (NEGATIVE); *OPIATE, URINE POSITIVE (NEGATIVE); *PHENCYCLIDINE SCREEN,URINE NEGATIVE (NEGATIVE)
[2017-12-26 08:00] VITALS: BP 111/57
[2017-12-26] MEDS: BUPRENORPHINE HCL 2 MG TAB.SUBL SL SCH ×4 (09:00→21:54)
[2017-12-26] MEDS: MULTIVITAMINS,THERAPEUTIC TABLET PO SCH (09:00)
[2017-12-26] MEDS ORDERED: TUBERCULIN,PURIF.PROT.DERIV. 5 TU/0.1 ML TEST ID ONE (09:00)
[2017-12-26 12:00] VITALS: BP 104/59
[2017-12-26] MEDS: GABAPENTIN 300 MG CAPSULE PO SCH ×2 (13:35→16:49)
[2017-12-26 16:00] VITALS: BP 116/73
[2017-12-26 20:00] VITALS: BP 119/65
[2017-12-26] MEDS: QUETIAPINE FUMARATE 100 MG TABLET PO SCH (21:55)
[2017-12-27] VITALS: BP 123/71
[2017-12-27 04:00] VITALS: BP 122/74
[2017-12-27 08:00] VITALS: BP 128/77
[2017-12-27] MEDS: CITALOPRAM 20 MG TABLET PO SCH (09:44)
[2017-12-27] MEDS: GABAPENTIN 300 MG CAPSULE PO SCH ×3 (09:44→21:09)
[2017-12-27] MEDS: MULTIVITAMINS,THERAPEUTIC TABLET PO SCH (09:44)
[2017-12-27] MEDS: BUPRENORPHINE HCL 2 MG TAB.SUBL SL SCH ×3 (09:44→21:10)
[2017-12-27 12:00] VITALS: BP 121/63
[2017-12-27 12:08] LABS: HEPATITIS B SURFACE AG Negative (Negative)
[2017-12-27 16:00] VITALS: BP 107/68
[2017-12-27 20:00] VITALS: BP 128/69
[2017-12-27] MEDS: METHOCARBAMOL 750 MG TABLET PO PRN (21:18)
[2017-12-27] MEDS: QUETIAPINE FUMARATE 100 MG TABLET PO SCH (22:30)
[2017-12-28 08:00] VITALS: BP 105/62
[2017-12-28] MEDS: GABAPENTIN 300 MG CAPSULE PO SCH ×3 (08:57→20:43)
[2017-12-28] MEDS: MULTIVITAMINS,THERAPEUTIC TABLET PO SCH (08:58)
[2017-12-28] MEDS: CITALOPRAM 20 MG TABLET PO SCH (08:58)
[2017-12-28] MEDS ORDERED: BUPRENORPHINE HCL 2 MG TAB.SUBL SL SCH (09:00)
[2017-12-28 12:00] VITALS: BP 106/52
[2017-12-28] MEDS: BUPRENORPHINE HCL 2 MG TAB.SUBL SL SCH ×2 (14:24→20:43)
[2017-12-28 16:00] VITALS: BP 119/63
[2017-12-28 20:00] VITALS: BP 125/75
[2017-12-28] MEDS: METHOCARBAMOL 750 MG TABLET PO PRN (20:43)
[2017-12-28] MEDS: QUETIAPINE FUMARATE 100 MG TABLET PO SCH (22:01)
[2017-12-29 08:00] VITALS: BP 115/58
[2017-12-29] MEDS: CITALOPRAM 20 MG TABLET PO SCH (09:23)
[2017-12-29] MEDS: BUPRENORPHINE HCL 2 MG TAB.SUBL SL SCH ×3 (09:23→20:48)
[2017-12-29] MEDS: MULTIVITAMINS,THERAPEUTIC TABLET PO SCH (09:23)
[2017-12-29] MEDS: GABAPENTIN 300 MG CAPSULE PO SCH ×3 (09:23→20:48)
[2017-12-29 12:00] VITALS: BP 120/59
[2017-12-29 16:00] VITALS: BP 145/69
[2017-12-29 20:00] VITALS: BP 120/73
[2017-12-29] MEDS: QUETIAPINE FUMARATE 100 MG TABLET PO SCH (20:48)
[2017-12-29] MEDS: IBUPROFEN 400 MG TABLET PO PRN (20:48)
[2017-12-29] MEDS: METHOCARBAMOL 750 MG TABLET PO PRN (22:16)
[2017-12-30] VITALS: BP 116/71
[2017-12-30 04:00] VITALS: BP 112/67
[2017-12-30 08:05] VITALS: BP 119/56
[2017-12-30] MEDS ORDERED: BUPRENORPHINE HCL 2 MG TAB.SUBL SL SCH (09:00)
[2017-12-30] MEDS: CITALOPRAM 20 MG TABLET PO SCH (09:07)
[2017-12-30] MEDS: IBUPROFEN 400 MG TABLET PO PRN (09:07)
[2017-12-30] MEDS: GABAPENTIN 300 MG CAPSULE PO SCH ×3 (09:07→20:56)
[2017-12-30] MEDS: MULTIVITAMINS,THERAPEUTIC TABLET PO SCH (09:07)
[2017-12-30] MEDS: METHOCARBAMOL 750 MG TABLET PO PRN ×2 (09:07→20:56)
[2017-12-30] MEDS ORDERED: HYDR-3895 PO (13:48)
[2017-12-30 16:00] VITALS: BP 110/62
[2017-12-30 20:03] VITALS: BP 120/64
[2017-12-30] MEDS: QUETIAPINE FUMARATE 100 MG TABLET PO SCH (20:56)
[2017-12-31 08:00] VITALS: BP 98/56
[2017-12-31] MEDS: MULTIVITAMINS,THERAPEUTIC TABLET PO SCH (08:51)
[2017-12-31] MEDS: GABAPENTIN 300 MG CAPSULE PO SCH (08:51)
[2017-12-31] MEDS: CITALOPRAM 20 MG TABLET PO SCH (08:51)
== END 2017-12-31 09:25 | disposition home or self-care (01) | DRG 895 ==
LOC: SRC 19:06
PROVIDERS: ADMIT Family Medicine Addiction Medicine; ATTEND Family Medicine Addiction Medicine
PROC: HZ2ZZZZ Detoxification Services for Substance Abuse Treatment (ICD-10-PCS; principal; 2017-12-25)
PROC: HZ31ZZZ Individual Counseling for Substance Abuse Treatment, Behavioral (ICD-10-PCS; 2017-12-27)
PROC: HZ41ZZZ Group Counseling for Substance Abuse Treatment, Behavioral (ICD-10-PCS; 2017-12-29)
DX: F11.23 Opioid dependence with withdrawal (principal); F33.2 Major depressive disorder, recurrent severe without psychotic features; F17.210 Nicotine dependence, cigarettes, uncomplicated; G47.00 Insomnia, unspecified; F41.9 Anxiety disorder, unspecified; F15.10 Other stimulant abuse, uncomplicated
CPT/HCPCS: 36415; 70030-TC; 80307; 80361; 83690; 83735; 84443; 85025; 86580; 86592; 86705; 86803; 87340; 87806; 93005; G0480

== ENCOUNTER 2018-01-27 17:11 | Inpatient (IN) | payer BC, OTHER ==
[~2018-01-27] VITALS: Ht 180.3 cm; Wt 80.7 kg
[~2018-01-27 17:11] MED LIST changes: +CITA20TA16 PO; -DIPH50CA37 PO; -HYDR-3895 PO; +QUET100T PO; -QUET25TA PO
--- NOTE | 2018-01-27 18:00 | NUR ---
Intake Assessment; 27 y/o male admitted for medically supervised withdrawal of ETOH and heroin. Pt also reports using meth.Vitals; 120/67, HR 57, resp 17, O2 sat 92% on room air. Resp even and unlabored. Pt disheveled, unshaven, fidgety, restless, avoid eye contact. Pt c/o restless legs, aches, chills, sweats and irritable. Denies c/o suicidal or homicidal ideations. Pt last drank 750 ml of whiskey last night 01/27/18 at 0300 Pt used 1 gram heroin via IV last night 01/27/18 at 0300 Pt used 1 gram meth via IV last night 01/27/18 at 03Pt has been using the listed substances daily for the last 4-5 weeks. He was last in treatment here at [facility]. Pt report NKA. States seizure history r/t ETOH in 2017, history withdrawal induced delirium r/t ETOH in 2017. Pt has had approximately 17-19 accidental overdoses r/t heroin and oxycontin. Pt reports frequent blackouts r/t ETOH use.
[2018-01-27] MEDS ORDERED: QUET100T PO (18:30)
[2018-01-27] MEDS ORDERED: CITA40TA11 PO (18:30)
[2018-01-27] MEDS ORDERED: CITA20TA16 PO (18:30)
[2018-01-27] MEDS ORDERED: MAG HYDROX/AL HYDROX/SIMETH 30 ML LIQUID UDC PO PRN (19:30)
[2018-01-27] MEDS ORDERED: LORAZEPAM 2 MG/1 ML VIAL IM PRN (19:30)
[2018-01-27] MEDS ORDERED: IBUPROFEN 600 MG TABLET PO PRN ×2 (19:30)
[2018-01-27] MEDS ORDERED: METHOCARBAMOL 750 MG TABLET PO PRN (19:30)
[2018-01-27] MEDS ORDERED: diphenhydrAMINE 50 MG CAPSULE PO PRN (19:30)
[2018-01-27] MEDS ORDERED: BUPRENORPHINE HCL 2 MG TAB.SUBL SL PRN (19:30)
[2018-01-27] MEDS ORDERED: CLONIDINE HCL 0.1 MG TABLET PO PRN ×2 (19:30)
[2018-01-27] MEDS ORDERED: HYDROXYZINE PAMOATE 25 MG CAPSULE PO PRN (19:30)
[2018-01-27] MEDS ORDERED: MIRALAX 17 GM POWD.PACK PO PRN (19:30)
[2018-01-27] MEDS ORDERED: LORAZEPAM 1 MG TABLET PO PRN ×2 (19:30)
[2018-01-27] MEDS ORDERED: LOPERAMIDE HCL 2 MG CAPSULE PO PRN ×2 (19:30)
[2018-01-27] MEDS ORDERED: MAGNESIUM HYDROXIDE 30 ML LIQUID UDC PO PRN (19:30)
[2018-01-27] MEDS ORDERED: ACETAMINOPHEN 325 MG TABLET PO PRN (19:30)
[2018-01-27 20:00] VITALS: BP 119/71
--- NOTE | 2018-01-27 21:30 | NUR ---
Hand Off Endorsed care over to Nurse for continuity of care, all pertinent information reported.
[2018-01-27 21:31] LABS: BASOPHILS # (AUTO) 0.1 K/uL (0.0-8.0); EOSINOPHILS # (AUTO) 0.2 K/uL (0.0-0.7); EOSINOPHILS % (AUTO) 2.5 % (0.0-7.0); HEMATOCRIT 44.6 % (36.7-47.1); HEMOGLOBIN 15.5 g/dL (12.5-16.3); LYMPHOCYTES # (AUTO) 1.7 K/uL (20.0-40.0); LYMPHOCYTES % (AUTO) 25.3 % (20.5-51.5); MEAN CORPUSCULAR HEMOGLOBIN 30.3 uug (23.8-33.4); MEAN CORPUSCULAR HGB CONC 35 g/dL (32.5-36.3); MEAN CORPUSCULAR VOLUME 87.1 fL (73.0-96.2); MONOCYTES % (AUTO) 14.9 % (0.0-11.0); NEUTROPHILS # (AUTO) 3.9 K/uL (1.8-8.9); NEUTROPHILS % (AUTO) 56.3 % (38.5-71.5); PLATELET COUNT (AUTO) 142 K/uL (152-348); RED BLOOD CELL COUNT(AUTO) 5.12 MIL/uL (4.06-5.63); WHITE BLOOD COUNT (AUTO) 6.9 K/uL (3.6-10.2)
[2018-01-27 21:48] LABS: ALANINE AMINOTRANSFERASE 47 U/L (16-63); ALKALINE PHOSPHATASE 70 U/L (50-136); AMYLASE 62 U/L (25-115); ASPARTATE AMINOTRANSFERASE 58 U/L (15-37); BILIRUBIN,TOTAL 0.7 mg/dL (0.2-1.0); CARBON DIOXIDE 33 mmol/L (21-32); CHLORIDE 102 mmol/L (98-107); CREATININE 1.3 mg/dL (0.6-1.3); ETHANOL < 3 MG/DL (0-0); GLUCOSE 97 mg/dL (74-106); LIPASE 158 U/L (73-393); POTASSIUM 3.7 mmol/L (3.5-5.1); TOTAL PROTEIN, SERUM 7.4 g/dL (6.4-8.2); UREA NITROGEN, BLOOD 18 mg/dL (7-18)
[2018-01-27 21:59] LABS: THYROID STIMULATING HORMONE 0.758 mIU/mL (0.358-3.740)
--- NOTE | 2018-01-27 22:00 | NUR ---
Admission Note Patient is 27 [id number] admitted 01/27/2018 for ETOH, Heroin, and methamphetamine withdrawal, arrived on unit 1820. Patient was seen at intake by JUAN JOSE Light, who wrote the preadmission note. Patient is currently not intoxicated. Patient is currently complains of anxiety, mild nausea, headache and body aches. Patient appears disheveled, avoids eye contact, and is agitated. Patient is alert oriented x4, ambulatory with a steady gait. Initial COWS 8 and CIWA 14 at 2000. Patient has no known allergies with a regular diet and full code. Patient states that when he experiences withdrawal he feels: anxious, nausea, vomiting, diarrhea, chills, sweats, headache, and body aches. Patient states he overall feels like crap. Patient reports that he has seizure history related to alcohol withdrawal. His most recent seizure was in 2017 and he denies receiving medical treatment. When asked what month the seizure occurred he stated I dont remember. Patient also reported having withdrawal induced delirium in 2017 and did not recall the month of occurrence. He denies receiving medical treatment for delirium. Patient admits having 17-18 accidental heroin and oxycodone overdoses in the past. Patient received medical treatment for reported overdoses. Patient also stated that he frequently experienced blackouts from alcohol use. Substance Abuse History: 1) ETOH (Whiskey) 750 ml PO daily, for the past 4 weeks. Patient reports, I started drinking when I was 13 years old. Patient reports last drink was 01/27/2018 at 0300, 750 ml whiskey. 2) Heroin IV over 1 gram daily, for the past 4 weeks. Patient reported he started using heroin at age 17. Patient states he last used heroin on 01/27/2018 at 0300, 1 gram IV. 3) Methamphetamine IV 0.5 gram daily, for the past 4 weeks. Patient reports he started using heroin at age 17. Patient states he last used methamphetamine 01/27/2018 at 0300, 0.5 gram IV. Patient states he is back in treatment at [facility] because I want to end this cycle, I want to live a normal life. When asked how this admission would be different, patient answered: I dont know. Patient stated he does not have any motivators to quit this life style, but he does want to get sober. Patient reports attending multiple treatment centers as follows: [facility] 12/25/2017, August 2017, and May 2017, [facility] in [place] in June 2017 and [facility] in [place] 2015. Patient reports being sober for 60 days in July 2017, and has struggled with sobriety for many years. Patient states that the reason for his drug use is related to peer pressure because of the people he hangs out with also use drugs. Patient also states that he uses because of boredom and strong cravings. Patient admits going to [employer] meetings and has a sponsor. His support system consists of his family and friends. Past medical history of anxiety, depression, insomnia, and collar bone fracture in 2010. Patient reported taking seroquel 100 mg PO daily at bedtime for insomnia since May 2017. Patient reports taking Celexa 40 mg PO daily since November 2017 for depression. Patient denies having a primary care physician. Patient sees a psychiatrist Dr. Leiva in [place]. Patient is 511 and weights 178 lb per standing scale. Patients skin is intact, dry, warm, and capillary refill is <3 seconds. PERRLA is present, pupils 2 cm bilaterally. Lung sounds are clear bilaterally, abdomen is soft and non tender, bowel sounds are present in all four quadrants, patient admits of having a bowel movement on 01/26/2018. Initial vital signs are as follow: BP 120/67, HR 57, RR 17, and O2 sat 92% on room air. Respirations were even and unlabored. Patient denies any family history of substance abuse. Patient has been oriented to unit, teaching was provided and policies were reviewed. Patient did not provide urine and blood work upon arrival to unit. Patient was unable to void. The lab will come to the unit to collect blood work. Patient is on fall and seizure precautions, safety measures in place, side rails up x2, bed locked to low position, call light within reach. Will administer medication as ordered, pending urinalysis. Will continue to monitor.
--- NOTE | 2018-01-27 23:55 | NUR ---
COWS 18 and CIWA 22 Patient is currently complaining of these following symptoms: sweating, restlessness, light sensitivity, bone and joint aches, runny nose, stomach cramps, body aches, piloerection of skin, anxiety and irritability. Current COWS is 18 and CIWA is 22, will administer medication as ordered.
--- NOTE | 2018-01-27 23:59 | NUR ---
PRN Subutex 4 MG and Ativan 2 MG PRN Subutex 4 mg given sublingual for COWS 18. PRN Ativan 2 mg PO given for CIWA 22. Safety measures in place, side rails up x2, low bed position, call light within reach. Will monitor for effectiveness.
[2018-01-28] MEDS ORDERED: QUETIAPINE FUMARATE 100 MG TABLET PO ONE
--- NOTE | 2018-01-28 | NUR ---
VITALS REFUSED Vitals refused at this time; patient agitated due to the fact that he was not allowed smoke or received medications pending his UA.
[2018-01-28] MEDS: METHOCARBAMOL 750 MG TABLET PO PRN ×2 (00:02→21:45)
[2018-01-28] MEDS: MULTIVITAMINS,THERAPEUTIC TABLET PO SCH ×2 (00:02→09:59)
--- NOTE | 2018-01-28 00:02 | NUR ---
PRN Robaxin 750mg and one-time Seroquel 100mg Patient complains of generalized body aches and difficulty sleeping. PRN Robaxin 750 mg PO given and one-time Seroquel 100 mg given PO. Respirations are even and unlabored. Safety measures in place, side rails up x2, low bed position, call light within reach. Will monitor for effectiveness.
--- NOTE | 2018-01-28 00:29 | NUR ---
PRN Subutex 4 MG Reassessment Upon reassessment patient verbalizes some improvement of symptoms, current COWS is 15. Respirations are even and unlabored. Patient appears less agitated and less irritable. Safety measures in place, side rails up x2, low bed position, call light within reach. Will continue to monitor.
[2018-01-28 00:34] LABS: *AMPHETAMINE, URINE POSITIVE (NEGATIVE); *BARBITURATE, URINE NEGATIVE (NEGATIVE); *CANNABINOID, URINE NEGATIVE (NEGATIVE); *COCCAINE, URINE NEGATIVE (NEGATIVE); *OPIATE, URINE POSITIVE (NEGATIVE); *PHENCYCLIDINE SCREEN,URINE NEGATIVE (NEGATIVE)
--- NOTE | 2018-01-28 00:59 | NUR ---
PRN Ativan 2 MG Reassessment Upon reassessment of PRN Ativan patient reports little improvement of symptoms, current CIWA is 19. Patient is requesting to be switched to Valium, stating I feel like Ativan doesnt really work for me, Lynn always used Valium in the past. Respirations are even and unlabored. Safety measures in place, side rails up x2, low bed position, call light within reach. Will continue to monitor.
--- NOTE | 2018-01-28 01:02 | NUR ---
PRN Robaxin 750mg and one-time Seroquel 100mg Reassessment Upon reassessment patient reports decrease body aches. Patient is observed in bed tired and trying to fall asleep, ready for bed with lights off. PRN Robaxin noted to be effective and the one-time Seroquel is mildly effective at this time. Respirations are even and unlabored. Safety measures in place, side rails up x2, low bed position, call light within reach. Will continue to monitor.
[2018-01-28 04:00] VITALS: BP 115/75
--- NOTE | 2018-01-28 04:00 | NUR ---
CIWA AND COWS DEFERRED Patient noted to be in bed resting with eyes closed breathing even and unlabored. Per protocol CIWA and COWS are to be assessed while awake. Safety measures in place, side rails up x2, low bed position, call light within reach. Will continue to monitor.
--- NOTE | 2018-01-28 07:14 | NUR ---
End of shift Patient is 27 [id number] admitted 01/27/2018 for ETOH, and opiate withdrawal. Patient also uses methamphetamine. Orders for tapers are pending, last COWS 15 and CIWA 19. Patient received the following PRN: Subutex 4 MG SL, Ativan 2 MG PO, Robaxin 750 MG, and a one-time Seroquel 100 MG PO. All PRN medications were noted to be effective. Patient slept for 6 hours, total intake was 1355 ml, void x2, stool x0. Patient was agitated and restless before PRN medications were administered. Patient is on fall and seizure precautions, the most recent seizure was in 2017 month unknown. Safety measures in place, side rails up x2, low bed position, call light within reach. Will endorse to day shift.
--- NOTE | 2018-01-28 07:20 | NUR ---
START OF SHIFT Received report from supportive employment case manager nurse. Pt is lying in bed resting with respirations even and unlabored. Skin is warm and moist. He is a 35 yo male admitted to [facility] on 01/27 for ETOH and Opiate withdrawal with a h/o using methamphetamine. PRN Ativan and PRN Subutex ordered for the management of withdrawal symptoms. Pt was irritable last night. He received PRN Robaxin, Seroquel, Subutex, and Ativan during the supportive employment case manager. Last COWS 15 and CIWA 19. He slept for 6 hours. Safety measures in place.
[2018-01-28 08:00] VITALS: BP 98/57
[2018-01-28] MEDS ORDERED: DOCUSATE SODIUM 250 MG CAPSULE PO SCH (09:00)
[2018-01-28] MEDS ORDERED: TUBERCULIN,PURIF.PROT.DERIV. 5 TU/0.1 ML TEST ID ONE (09:00)
--- NOTE | 2018-01-28 09:00 | NUR ---
COWS and CIWA deferred Pt is sleeping and does not want to be woken up. Respirations even and unlabored. COWS and CIWA deferred.
[2018-01-28] MEDS: GABAPENTIN 300 MG CAPSULE PO SCH ×2 (09:59→15:00)
[2018-01-28 11:06] LABS: HEPATITIS B SURFACE AG Negative (Negative)
[2018-01-28] MEDS ORDERED: 3 DAY TAPER BUPRENORPHINE -SERENITY PROTOCOL SL PRN (11:30)
[2018-01-28] MEDS ORDERED: 5 DAY TAPER OF LORAZEPAM -SERENITY PROTOCOL PO PRN (11:30)
[2018-01-28 12:00] VITALS: BP 106/48
--- NOTE | 2018-01-28 12:00 | NUR ---
COWS and CIWA COWS and CIWA deferred due to sleep.
--- NOTE | 2018-01-28 13:30 | NUR ---
Therapist prompted client to attend all group therapy sessions.
[2018-01-28] MEDS: LORAZEPAM 1 MG TABLET PO SCH ×3 (13:59→21:45)
[2018-01-28 16:00] VITALS: BP 104/57
--- NOTE | 2018-01-28 19:25 | NUR ---
END OF SHIFT Report provided to shift mgr nurse. Pt is lying in bed resting. He is a 27 yo male admitted to [facility] on 01/27 for ETOH and Opiate withdrawal with a h/o using methamphetamine. Pt was ordered 3 day Ativan and 3 day Subutex tapers to start today. He slept throughout the shift related to recent methamphetamine use. He was mostly hypotensive throughout the day. Medications not administered. He woke up briefly to eat dinner and sip fluids but went immediately back to sleep. No PRN medications administered. COWS and CIWA were unable to be assessed due to patient sleeping. Safety measures in place.
--- NOTE | 2018-01-28 19:30 | NUR ---
START OF SHIFT Pt is a 27 y/o male admitted on 01/27/18 for ETOH and opiate withdrawal. Pt was also sing methamphetamine. Pt is on a 3 day Ativan and 3 day Subutex taper, tolerating well. Pt was asleep throughout day shift, all COWS/CIWAs deferred and all meds were non-administered. No PRNs given. Upon assessment pt asleep, but upon awakening pt presents with anxiety, agitation, goosebumps, runny nose, teary eyes, body aches, sweats, chills, flushed skin, photosensitivity, sensitivity to light, fatigue, lethargy, disheveled appearance, unkempt room. Medications due. Safety measures in place. Call light within reach. Will continue to monitor.
[2018-01-28 20:00] VITALS: BP 104/60
--- NOTE | 2018-01-28 20:00 | NUR ---
COWS 15 AND CIWA 15 Pt presents with anxiety, agitation, goosebumps, runny nose, teary eyes, body aches, sweats, chills, flushed skin, photosensitivity, sensitivity to light, fatigue, lethargy, disheveled appearance, unkempt room.
[2018-01-28] MEDS ORDERED: BUPRENORPHINE HCL 2 MG TAB.SUBL SL SCH (21:00)
[2018-01-28] MEDS: QUETIAPINE FUMARATE 100 MG TABLET PO SCH (21:45)
--- NOTE | 2018-01-28 21:45 | NUR ---
PRN ROBAXIN ADMINISTRATION Pt reports body aches and appears uncomfortable. Safety measures in place. Call light within reach. Will continue to monitor.
--- NOTE | 2018-01-28 22:45 | NUR ---
PRN ROBAXIN REASSESSMENT Pt laying in bed with eyes closed, medication noted effective. Respirations even and unlabored. Safety measures in place. Call light within reach. Will continue to monitor.
[2018-01-29] VITALS: BP 101/56
--- NOTE | 2018-01-29 | NUR ---
COWS/CIWA DEFERRED Pt laying in bed with eyes closed, COWS/CIWA deferred, to be assessed when pt is awake per orders. Respirations even and unlabored. Safety measures in place. Call light within reach. Will continue to monitor.
[2018-01-29 04:00] VITALS: BP 110/54
--- NOTE | 2018-01-29 07:18 | NUR ---
END OF SHIFT Pt is a 27 y/o male admitted on 01/27/18 for ETOH and opiate withdrawal. Pt was also using methamphetamine. Pt is on a 3 day Ativan and 3 day Subutex taper, tolerating well. Pt presented with anxiety, agitation, goosebumps, runny nose, teary eyes, body aches, sweats, chills, flushed skin, photosensitivity, sensitivity to light, fatigue, lethargy, disheveled appearance, unkempt room. Scheduled medications and PRN Robaxin administered, effective in S/S of withdrawal as verbalized by pt. Last COWS 15 and CIWA 15. Pt slept 8 hours. Intake 500 ml, void x 1, stool x 0. Safety measures in place. Call light within reach. Pts needs have been met. Endorsed to day shift nurse.
--- NOTE | 2018-01-29 07:30 | NUR ---
Start of Shift Client Delivery Manager received report on 27 year old male admitted to [facility] on 01/27/18 for medical management of ETOH and Opiate withdrawals. Pt endorses NKA, full code and regular diet. Pt denies any chronic PMH, PPH of depression, anxiety and insomnia. Pt currently on a 3 day Ativan and 3 day Subutex taper, last CIWA 15 and COWS 15 per NOC report. Pt was administered Robaxin(myalgia) as PRN medication on NOC, per report. Client Delivery Manager encounters pt in pts room with pt resting. Pt with a linear thought process and clear speech pattern. Makes needs known. A/O x4 with a flat affect and depressed mood. Endorses generalized body discomfort, chills, nausea. Pt is diaphoretic with piloerection of the skin. Pt is anxious and restless, with fine tremors and restless legs. Bed in low position with wheels locked and side rails up x2. Will continue to monitor, support and encourage according to plan of care.
--- NOTE | 2018-01-29 08:00 | NUR ---
CIWA 12/COWS 14 Pt is anxious and restless, with restless legs. Diaphoretic and piloerection of skin. Complains of myalgia, nausea and chills. Will continue to monitor, support and encourage according to plan of care.
[2018-01-29 08:10] VITALS: BP 121/66
[2018-01-29] MEDS: CITALOPRAM 20 MG TABLET PO SCH (09:19)
[2018-01-29] MEDS: MULTIVITAMINS,THERAPEUTIC TABLET PO SCH (09:19)
[2018-01-29] MEDS: GABAPENTIN 300 MG CAPSULE PO SCH ×2 (09:19→15:08)
[2018-01-29] MEDS: LORAZEPAM 1 MG TABLET PO SCH ×3 (09:19→21:06)
[2018-01-29] MEDS: BUPRENORPHINE HCL 2 MG TAB.SUBL SL SCH ×3 (09:19→21:06)
--- NOTE | 2018-01-29 09:48 | NUR ---
Therapist prompted client to attend twice daily group therapy sessions.
[2018-01-29 12:45] VITALS: BP 117/68
--- NOTE | 2018-01-29 12:45 | NUR ---
CIWA 9/COWS 13 Pt is diaphoretic with piloerection. Pt with fine tremors and nausea with chills and anxiety. Pt is restless and anxious. Will continue to monitor, support and encourage according to plan of care.
[2018-01-29 16:30] VITALS: BP 113/64
--- NOTE | 2018-01-29 17:24 | NUR ---
CIWA 10/COWS 12 Pt with fine tremors, nausea, chills and diaphoresis. Will continue to monitor, support and encourage according to plan of care.
--- NOTE | 2018-01-29 19:12 | NUR ---
End of Shift Crusher Feeder provided report on 27 year old male admitted to [facility] on 01/27/18 for medical management of ETOH and Opiate withdrawals. Pt endorses NKA, full code and regular diet. Pt denies any chronic PMH, PPH of depression, anxiety and insomnia. Pt currently on a 3 day Ativan and 3 day Subutex taper, last CIWA 15 and COWS 15 per NOC report. No PRN medications administered this shift. Pt with a linear thought process and clear speech pattern. Makes needs known. A/O x4 with a flat affect and depressed mood. Endorses generalized body discomfort, chills, nausea. Pt with moist skin and piloerection of the skin. Pt is anxious and restless, with fine tremors. Bed in low position with wheels locked and side rails up x2.
--- NOTE | 2018-01-29 19:30 | NUR ---
START OF SHIFT Pt is a 27 y/o male admitted on 01/27/18 for medically supervised withdrawal of ETOH and opiates. Pt is on a 3 day Ativan taper and 3 day Subutex taper, tolerating well. Last CIWA 10 COWS 12 and no PRNs given during day shift. Upon assessment Pt presents with anxiety, agitation, generalized body pain, flushed skin, isolative, and difficulty falling and staying asleep. Medications due. Safety measures in place. Call light within reach. Will continue to monitor.
[2018-01-29 20:00] VITALS: BP 118/72
--- NOTE | 2018-01-29 20:00 | NUR ---
CIWA 10 COWS 10 Pt presents with anxiety, agitation, body aches, restlessness, and moist skin. Safety measures in place. Call light within reach. Will continue to monitor.
[2018-01-29] MEDS: QUETIAPINE FUMARATE 100 MG TABLET PO SCH (21:05)
[2018-01-29] MEDS: METHOCARBAMOL 750 MG TABLET PO PRN (21:06)
--- NOTE | 2018-01-29 21:06 | NUR ---
PRN ROBAXIN ADMINISTRATION Pt requests muscle relaxant for 7/10 generalized body aches. PRN Robaxin was administered per order. Safety measures in place. Call light within reach. Will continue to monitor.
--- NOTE | 2018-01-29 22:06 | NUR ---
USHA NICOLAS REASSESSMENT Pt complained of generalized body pain 7/10 before medication was administered. On reassessment Pt's stated generalized body pain is 3/10 and he is now more comfortable. Medication noted as effective. Safety measures in place. Call light within reach. Will continue to monitor.
[2018-01-30] VITALS: BP 121/70
--- NOTE | 2018-01-30 | NUR ---
CIWA 5 COWS 5 Pt presents with mild agitation, anxiety, restlessness, and flushed/moist skin. Safety measures in place. Call light within reach. Will continue to monitor.
--- NOTE | 2018-01-30 04:00 | NUR ---
CIWA/COWS DEFERRED AND VITAL SIGNS REFUSED Patient is noted in bed with eyes closed. Breathing even and non labored. CIWA/COWS and vital signs not able to be completed per order. Safety measures in place. Call light within reach. Will continue to monitor.
--- NOTE | 2018-01-30 07:09 | NUR ---
END OF SHIFT Pt is a 27 y/o male admitted on 01/27/18 for medically supervised withdrawal of ETOH and opiates. Pt to continue a 3 day Ativan taper and 3 day Subutex taper, tolerating well. Pt presented with anxiety, agitation, generalized body pain, flushed skin, isolative, and difficulty falling and staying asleep. PRN Robaxin administered, effective in S/S of withdrawal as verbalized by Pt. Last CIWA 5 COWS 5. Pt slept 7 hours. Intake 943 ml, void x 2, stool x 0. Safety measures in place. Call light within reach. Pt's needs have been met. Endorsed to day shift nurse.
--- NOTE | 2018-01-30 07:30 | NUR ---
Start of Shift Buffing Wheel Former Machine received report on 27 year old male admitted to [facility] on 01/27/18 for medical management of ETOH and Opiate withdrawals. Pt endorses NKA, full code and regular diet. Pt denies any chronic PMH, PPH of depression, anxiety and insomnia. Pt currently on a 3 day Ativan and 3 day Subutex taper, last CIWA 5 and COWS 5 per NOC report. Pt was administered Robaxin(myalgia) as PRN medication on NOC, per report. Buffing Wheel Former Machine encounters pt in pts room with pt resting with eyes closed. Even and unlabored respirations noted. . Bed in low position with wheels locked and side rails up x2. Will continue to monitor, support and encourage according to plan of care.
[2018-01-30 08:00] VITALS: BP 105/56
--- NOTE | 2018-01-30 08:00 | NUR ---
CIWA 6/COWS 7 Pt is diaphoretic, tremulous and anxious, with nausea and chills. Will continue to monitor, support and encourage according to plan of care.
[2018-01-30] MEDS ORDERED: BUPRENORPHINE HCL 2 MG TAB.SUBL SL SCH ×2 (09:00→21:00)
[2018-01-30] MEDS: MULTIVITAMINS,THERAPEUTIC TABLET PO SCH (09:42)
[2018-01-30] MEDS: GABAPENTIN 300 MG CAPSULE PO SCH ×2 (09:42→14:14)
[2018-01-30] MEDS: CITALOPRAM 20 MG TABLET PO SCH (09:42)
[2018-01-30] MEDS: LORAZEPAM 1 MG TABLET PO SCH ×2 (09:42→21:40)
[2018-01-30 12:36] VITALS: BP 104/59
--- NOTE | 2018-01-30 12:45 | NUR ---
CIWA 10/COWS 10 Pt is diaphoretic, fine tremors, anxiety, restlessness and nausea, with complaints of chills and myalgia. Will continue to monitor, support and encourage according to plan of care.
[2018-01-30] MEDS ORDERED: 3 DAY TAPER BUPRENORPHINE -SERENITY PROTOCOL SL PRN (13:45)
[2018-01-30] MEDS ORDERED: BUPRENORPHINE HCL 2 MG TAB.SUBL SL ONE (13:45)
[2018-01-30] MEDS: BUPRENORPHINE HCL 2 MG TAB.SUBL SL ONE ×2 (14:16→15:09)
--- NOTE | 2018-01-30 14:16 | NUR ---
Non-Administer Subutex Medication was non-administration due to medication being overridden in [employer] d/t communication error.
[2018-01-30 16:30] VITALS: BP 111/63
--- NOTE | 2018-01-30 16:57 | NUR ---
CIWA 8/COWS 9 Pt is diaphoretic, anxious, restless, tremulous and complains of chills and nausea. Will continue to monitor, support and encourage according to plan of care.
--- NOTE | 2018-01-30 18:49 | NUR ---
End of Shift Machine Tool Rebuilder provided report on 27 year old male admitted to [facility] on 01/27/18 for medical management of ETOH and Opiate withdrawals. Pt endorses NKA, full code and regular diet. Pt denies any chronic PMH, PPH of depression, anxiety and insomnia. Pt currently on Subutex and Ativan tapers that were extended this afternoon. Last CIWA 8 and COWS 9. No PRN medication administered this shift. Pt is A/O x4 and able to make needs known. Linear thought process with clear speech pattern. Calm and cooperative. Normal affect and congruent mood. Even and unlabored respirations noted. . Bed in low position with wheels locked and side rails up x2.
--- NOTE | 2018-01-30 19:35 | NUR ---
Start of Shift Note Received a 27 y/o male px, admitted for medically supervised withdrawal from ETOH and Heroin. Px is also using methamphetamine. Px was placed on 3 day Ativan and 3 day Subutex taper. He is tolerating them. Last reported COWS 9 and CIWA 8 by AM shift nurse. During the rounds at 1935, px is awake on bed in left side lying position. Px appears anxious, and depressed. He is disheveled and unshaven. Few snacks and drinks noted on top of the bed side table. Px states that his anxiety is 5/10. He has body aches of 5/10 , sweats, chills and teary eyes. Bed on lowest position, bed rails up 2x and call light within reach. Well continue to monitor.
[2018-01-30 20:00] VITALS: BP 103/57
--- NOTE | 2018-01-30 20:00 | NUR ---
COWS 10 and CIWA 10 Upon assessment, px appears anxious, and depressed. Px states that his anxiety is 5/10. He has body aches of 5/10 , sweats, chills and teary eyes. AZ= 57. will continue to monitor
[2018-01-30] MEDS: QUETIAPINE FUMARATE 100 MG TABLET PO SCH (21:40)
[2018-01-30] MEDS: METHOCARBAMOL 750 MG TABLET PO PRN (21:50)
--- NOTE | 2018-01-30 21:50 | NUR ---
PRN Robaxin Px received Robaxin 750 mg PO for body aches of 5/10. To reassess after an hour
--- NOTE | 2018-01-30 22:50 | NUR ---
USHA Correa reassessment Px states that aches are still there but he feels better. will continue to monitor
[2018-01-31] VITALS: BP 111/64
--- NOTE | 2018-01-31 | NUR ---
COWS 10 and CIWA 10 Upon assessment, px appears anxious, and depressed. Px states that his anxiety is still 5/10. He has body aches of 2/10 ,sweats, chills and teary eyes. will continue to monitor
[2018-01-31 04:00] VITALS: BP 110/66
--- NOTE | 2018-01-31 04:00 | NUR ---
COWS and CIWA deferred COWS and CIWA deferred due to the px is asleep, to assess if the px is awake per doctor's order. will continue to monitor
--- NOTE | 2018-01-31 07:05 | NUR ---
End of Shift Note During the shift at 2150, px received Robaxin 750 mg PO for body aches. It was effective. Oral intake of 900 ml, voided 2x, No BM. He slept intermittently for 4 hours. Last COWS 10 and CIWA 10. Bed on lowest position, bed rails up 2x and call light within reach. Well continue to monitor. Px endorsed to AM shift nurse.
--- NOTE | 2018-01-31 07:30 | NUR ---
START OF SHIFT Pt 27 y/o male admitted for etoh and opiate withdrawal. Pt received in room on bed with eyes closed resting, but easily arousable to name. Pt alert and oriented to name, place, and time. Perrla. Skin warm to touch. Respirations even and unlabored. Appears disheveled and unkempt. Clothes and empty drink bottles scattered throughout the room. Encouraged to maintain hygiene. Anxious and restless. Complaints of intermittent perspiration, general discomfort, and body aches. Bilateral hand tremors noted. It was reported that pt slept for 4 hours last night. Pt is on a modified ativan taper and is on day 4. Pt also on a modified subutex taper and is on day 4. Bed on lowest position with side rails x 2 up for safety. Call light within reach.
[2018-01-31 08:00] VITALS: BP 100/60
--- NOTE | 2018-01-31 08:00 | NUR ---
COWS CIWA ASSESSMENT cows=10 ciwa=11. Pt anxious and restless. Pressured speech noted. Bilateral hand tremors noted. Complaints of intermittent perspiration and chills, body aches, and generalized discomfort. Pt isolative and appears with low motivation for self care.
[2018-01-31] MEDS: MULTIVITAMINS,THERAPEUTIC TABLET PO SCH (08:30)
[2018-01-31] MEDS: GABAPENTIN 300 MG CAPSULE PO SCH ×2 (08:30→14:10)
[2018-01-31] MEDS: LORAZEPAM 1 MG TABLET PO SCH ×2 (08:30→16:05)
[2018-01-31] MEDS: CITALOPRAM 20 MG TABLET PO SCH (08:30)
[2018-01-31] MEDS: BUPRENORPHINE HCL 2 MG TAB.SUBL SL SCH ×3 (08:30→20:41)
[2018-01-31 12:00] VITALS: BP 109/60
--- NOTE | 2018-01-31 12:00 | NUR ---
COWS CIWA ASSESSMENT cows=10 ciwa=11. Anxious and restless. Not able to lay still in bed. Bilateral hand tremors. Pressured speech. Perspiration on forehead noted. Complaints of intermittent chills and perspirations. States has ," goose bumps and skin is crawling." Stomach cramps.
[2018-01-31 16:00] VITALS: BP 126/70
--- NOTE | 2018-01-31 16:00 | NUR ---
COWS CIWA ASSESSMENT cows=10 ciwa=10. Restless. Fatigued. Not able to lay still in bed. Complaints of , "skin crawling." Bilateral hand tremors. Generalized discomfort and body aches.
--- NOTE | 2018-01-31 18:33 | NUR ---
END OF SHIFT Pt 27 y/o male admitted for etoh and opiate withdrawal. Pt alert and oriented to name, place, and time. Perrla. Skin warm and moist to touch. Respirations even and unlabored. Appears disheveled and unkempt. Malodorous. Food wrappings, clothes, and empty drink bottles scattered throughout the room. Encouraged to maintain hygiene. Restless. Not able to lay still. Bilateral hand tremors noted. Complaints of generalized discomfort and body aches. Stated "skin crawling". Intermittent chills and perspiration. Isolative to room today with minimal peer interaction. Low motivation for self care. Medication compliant. Did not attend group activity. Last cows=10ciwa=11@1600. Pt is on a modified ativan taper and is on day 4. Pt also on a modified subutex taper and is on day 4. Bed on lowest position with side rails x 2 up for safety. Call light within reach.
--- NOTE | 2018-01-31 19:30 | NUR ---
Start of Shift Note Received a 27 y/o male px, admitted for medically supervised withdrawal from ETOH and Heroin. Px is also using methamphetamine. Px was placed on 3 day Ativan and 3 day Subutex taper started on 01/28/2018. He is tolerating them. Last reported COWS 10 and CIWA 11 by AM shift nurse. During the rounds at 1930, px is awake inside his room. Px appears anxious, and depressed. He is disheveled and unshaven. Snacks and drinks noted on top of the bed side table. Px states that his anxiety is 7/10. He has body aches of 5/10, sweats, chills and teary eyes. Bed on lowest position, bed rails up 2x and call light within reach. Well continue to monitor.
[2018-01-31 20:00] VITALS: BP 115/79
--- NOTE | 2018-01-31 20:00 | NUR ---
COWS 12 and CIWA 12 On assessment, px appears anxious. Px states that his anxiety is 7/10. He has body aches of 5/10, sweats, chills and teary eyes. Goose bumps noted. will continue to monitor
[2018-01-31] MEDS: QUETIAPINE FUMARATE 100 MG TABLET PO SCH (20:41)
[2018-01-31] MEDS: METHOCARBAMOL 750 MG TABLET PO PRN (20:41)
--- NOTE | 2018-01-31 20:41 | NUR ---
PRN Robaxin Px received Robaxin 750 mg PO for body pains of 5/10. will continue to monitor
--- NOTE | 2018-01-31 21:45 | NUR ---
USHA Robaxin reassessment Px stated that his body aches improved from 5/10 to 2/10. will continue to monitor
[2018-02-01] VITALS: BP 120/81
--- NOTE | 2018-02-01 | NUR ---
COWS 12 and CIWA 12 On assessment, px is still awake. He appears anxious. Px states that his anxiety is still moderate. He has body aches of 2/10, sweats, chills and teary eyes. Goose bumps noted. will continue to monitor
[2018-02-01 04:00] VITALS: BP 119/77
--- NOTE | 2018-02-01 07:05 | NUR ---
End of Shift Note During the shift at 2040, px received Robaxin 750 mg PO for body aches. It was effective. Oral intake is 1000 ml, voided 3x, No BM. Px slept for 5.5 hours. Last COWS 12 and CIWA 12. Bed on lowest position, bed rails up 2x and call light within reach. Well continue to monitor. Px endorsed to AM shift nurse.
--- NOTE | 2018-02-01 07:30 | NUR ---
START OF SHIFT Pt 27 y/o male admitted for etoh and opiate withdrawal. Pt received in room on bed with eyes closed resting, but easily arousable to name. Pt alert and oriented to name, place, and time. Perrla. Skin warm and moist to touch. Respirations even and unlabored. Pt appears disheveled and unkempt. Clothes and food wrappings scattered throughout the room. Encouraged to maintain hygiene. Restless. Not able to lay still. Bilateral hand tremors noted. Complaints of intermittent perspiration and chills. Generalized body aches and discomfort. It was reported that pt slept for 5.5 hours last night. Last cows=12 ciwa=12 @0000. Pt is on a modified ativan taper and is on day 5. Pt also on a modified subutex taper and is on day 5. Bed on lowest position with side rails x2 up for safety. Call light within reach.
[2018-02-01 08:00] VITALS: BP 106/70
--- NOTE | 2018-02-01 08:00 | NUR ---
COWS CIWA ASSESSMENT cows=12 ciwa=12. Restless, not able to lay still in bed. Bilateral hand tremors noted. Complaints of generalized body aches and discomfort. Intermittent perspiration and chills.
[2018-02-01] MEDS: MULTIVITAMINS,THERAPEUTIC TABLET PO SCH (08:41)
[2018-02-01] MEDS: LORAZEPAM 1 MG TABLET PO SCH (08:41)
[2018-02-01] MEDS: CITALOPRAM 20 MG TABLET PO SCH (08:41)
[2018-02-01] MEDS: GABAPENTIN 300 MG CAPSULE PO SCH ×2 (08:41→14:19)
[2018-02-01] MEDS ORDERED: BUPRENORPHINE HCL 2 MG TAB.SUBL SL SCH (09:00)
[2018-02-01 12:00] VITALS: BP 110/80
--- NOTE | 2018-02-01 12:00 | NUR ---
COWS CIWA ASSESSMENT cows=8 ciwa=9. Restless in bed. Not able to lay still in bed. Easily irritable/ agitated. Intermittent perspiration noted.
[2018-02-01] MEDS ORDERED: IBUP-1955 PO (14:34)
[2018-02-01] MEDS ORDERED: QUET100T PO (14:34)
[2018-02-01] MEDS ORDERED: CITA20TA19 PO (14:34)
[2018-02-01] MEDS ORDERED: GABA-534 PO (14:34)
[2018-02-01] MEDS ORDERED: METH-406 PO (14:34)
[2018-02-01] MEDS ORDERED: CLON0.1T14 PO (14:34)
[2018-02-01 16:00] VITALS: BP 115/72
--- NOTE | 2018-02-01 16:00 | NUR ---
CIWA COWS ASSESSMENT cows=6 ciwa=7. Anxious and restless. Pressured speech. Easily irritable. Complaints of generalized discomfort.
--- NOTE | 2018-02-01 18:46 | NUR ---
END OF SHIFT Pt 27 y/o male admitted for etoh and opiate withdrawal. Pt alert and oriented to name, place, and time. Perrla. Skin warm and moist to touch. Respirations even and unlabored. Appears disheveled and unkempt. Food wrappings and empty drink bottles scattered throughout the room. Encouraged to maintain hygiene. Restless. Fatigued. Bilateral hand tremors noted. Complaints of generalized body aches and discomfort. Intermittent chills and perspiration. Isolative to room today with minimal peer interaction. Low motivation for self care. Medication compliant. Did not attend group activity. Last cows=6 ciwa=7@1600. Pt is on a modified ativan taper and is on day 5. Pt also on a modified subutex taper and is on day 5. Bed on lowest position with side rails x 2 up for safety. Call light within reach.
--- NOTE | 2018-02-01 19:15 | NUR ---
Start of shift note Pt is a 27 yo male, A+Ox4, presenting to [facility] for medically supervised ETOH/Opiate withdrawal. Pt was also using Methamphetamines. Pt noted to be anxious, restless, and agitated. Pt has HX of depression, insomnia, and anxiety which will be monitored during shift. Pt has completed 3 day Ativan and 3 day Subutex tapers, tolerated well, and is due for discharge tomorrow. Respirations even and unlabored. Will continue to monitor.
[2018-02-01 20:10] VITALS: BP 129/77
--- NOTE | 2018-02-01 20:10 | NUR ---
COWS and CIWA Assessment COWS: 5 and CIWA: 6. Pt noted with pulse 67, chills, sweat on brow, restlessness, fine tremors, anxiety, and agitation. Respirations even and unlabored. Will continue to monitor.
[2018-02-01] MEDS: QUETIAPINE FUMARATE 100 MG TABLET PO SCH (21:38)
--- NOTE | 2018-02-02 00:24 | NUR ---
V/S refused and COWS and CIWA assessment deferred for sleep. Respirations even and unlabored. Will continue to monitor.
--- NOTE | 2018-02-02 04:51 | NUR ---
V/S refused and COWS and CIWA assessment deferred for sleep. Respirations even and unlabored. Will continue to monitor.
--- NOTE | 2018-02-02 06:57 | NUR ---
End of shift note Pt was continuously noted with restlessness, anxiety, and agitation. Pt remained in room for majority of shift except to get food from kitchen and to go smoke on smoking patio. Pt remained cooperative and compliant with all aspects of treatment. Pt was not given any PRN medications during shift. Pt has completed 3 day Ativan and 3 day Subutex tapers, tolerated well, and is due for discharge today. Pt slept for a total of 6 HRS. Last COWS: 5 and Last CIWA: 6 @2009. Respirations even and unlabored. Will endorse to day shift nurse.
--- NOTE | 2018-02-02 07:30 | NUR ---
START OF SHIFT pt 27 y/o male admitted for etoh and opiate withdrawal. Pt received in room awake watching television. Pt alert and oriented to name, place, and time. perrla. Skin warm and moist touch. Respirations even and unlabored. Appear disheveled. Clothes scattered throughout the room. Encouraged to maintain hygiene. Anxious and restless. Pressured speech. Fidgety. It was reported that pt slept for 6 hours last night. Pt completed a modified ativan and modified subutex taper. Last cows=5 ciwa=6 @0000. Bed on lowest position with side rails x2 up for safety. Call light within reach. Pt scheduled to be discharged today.
[2018-02-02 08:00] VITALS: BP 100/60
--- NOTE | 2018-02-02 08:00 | NUR ---
COWS CIWA ASSESSMENT cows=5 ciwa=6. Anxious and restless. Pressured speech. Fidgety.
[2018-02-02] MEDS: GABAPENTIN 300 MG CAPSULE PO SCH (08:55)
[2018-02-02] MEDS: CITALOPRAM 20 MG TABLET PO SCH (08:55)
[2018-02-02] MEDS: MULTIVITAMINS,THERAPEUTIC TABLET PO SCH (08:55)
--- NOTE | 2018-02-02 09:40 | NUR ---
DISCHARGE pt 27 y/o male admitted for etoh and opiate withdrawal. Pt alert and oriented to name, place, and time. perrla. Skin warm and moist touch. Respirations even and unlabored. Anxious and restless. No belongings in cassette noted. Belongings in cabinet, home medications, prescriptions, and discharge papers packed in bag. Denies any SI/ HI. Pt discharged home via personal transportation. No distress noted.
== END 2018-02-02 09:40 | disposition home or self-care (01) | DRG 895 ==
LOC: SRC 17:11
PROVIDERS: ADMIT Family Medicine Addiction Medicine; ATTEND Family Medicine Addiction Medicine
PROC: HZ2ZZZZ Detoxification Services for Substance Abuse Treatment (ICD-10-PCS; principal; 2018-01-27)
PROC: HZ31ZZZ Individual Counseling for Substance Abuse Treatment, Behavioral (ICD-10-PCS; 2018-01-29)
DX: F10.231 Alcohol dependence with withdrawal delirium (principal); F11.23 Opioid dependence with withdrawal; Y90.0 Blood alcohol level of less than 20 mg/100 ml; F15.23 Other stimulant dependence with withdrawal; Z91.89 Other specified personal risk factors, not elsewhere classified; Z87.81 Personal history of (healed) traumatic fracture; F17.210 Nicotine dependence, cigarettes, uncomplicated; F32.9 Major depressive disorder, single episode, unspecified; F41.1 Generalized anxiety disorder; G47.00 Insomnia, unspecified
CPT/HCPCS: 36415; 70030-TC; 80307; 80324; 80361; 83690; 83735; 84443; 85025; 86592; 86705; 86803; 87340; 87806; A4663; G0480

== ENCOUNTER 2018-03-02 16:56 | Inpatient (IN) | payer BC, OTHER ==
[~2018-03-02] VITALS: Ht 180.3 cm; Wt 81.6 kg
[~2018-03-02 16:56] MED LIST changes: -CITA20TA16 PO; +CITA20TA19 PO
--- NOTE | 2018-03-02 18:08 | NUR ---
Pre-admission assessment- 28 y/o male presents for medically supervised withdrawal from ETOH, Heroin, and Benzodiazepines. ETOH (Cuong Camacho) 300 ml daily for 1 month. Last drank 03/01/18 at 1100. Heroin 2 grams IV daily for 1 month. Last used 03/01/18 at 1700. Xanax 8-10 mg daily for 1 month. Last used 02/28/18. Vitals: 133/84, HR 67, resp 16, temp 98.1, O2sat 99% Pt is alert and oriented X4. Pt denies intoxication and c/o withdrawal symptoms; bilateral gross hand tremors, chills, sweats, body aches, headache, restless legs and nausea. Pt has poor eye contact, disheveled, piloerection, affect is flat, anhedonia, dysphoria and depressed mood. He ambulates with steady gait. Pt reports he has no PCP, but does consult with a psychiatrist Dr. Bandar Mendez. Routine medications; Seroquel 100 mg PO QHS insomnia, Celexa 40 mg PO QD for depression. Pt is compliant with these medications. PMH is insomnia and depression. Pt reports NKA and Full Code. Pt reports seizure history r/t ETOH in 2017. Reports withdrawal induced delirium in 2017. Pt admits to 15-20 accidental heroin and oxycodone overdoses. He has also experienced multiple blackouts from ETOH. Addendum: 03/02/18 at 1833 by Nadege Dooley RN Pt on unit at 1822. Height 5'11", weight 180#, skin intact. Noted peeling skin r/t sunburn on low back.
[2018-03-02] MEDS ORDERED: LORAZEPAM 2 MG/1 ML VIAL IM PRN (19:00)
[2018-03-02] MEDS ORDERED: MAG HYDROX/AL HYDROX/SIMETH 30 ML LIQUID UDC PO PRN (19:00)
[2018-03-02] MEDS ORDERED: ACETAMINOPHEN 325 MG TABLET PO PRN (19:00)
[2018-03-02] MEDS ORDERED: MIRALAX 17 GM POWD.PACK PO PRN (19:00)
[2018-03-02] MEDS ORDERED: THIAMINE HCL 200 MG/2 ML VIAL IM ONE (19:00)
[2018-03-02] MEDS ORDERED: IBUPROFEN 600 MG TABLET PO PRN (19:00)
[2018-03-02] MEDS ORDERED: CLONIDINE HCL 0.1 MG TABLET PO PRN (19:00)
[2018-03-02] MEDS ORDERED: LORAZEPAM 1 MG TABLET PO PRN ×2 (19:00)
[2018-03-02] MEDS ORDERED: diphenhydrAMINE 50 MG CAPSULE PO PRN (19:00)
[2018-03-02] MEDS ORDERED: DICYCLOMINE HCL 20 MG TABLET PO PRN (19:00)
[2018-03-02] MEDS ORDERED: LOPERAMIDE HCL 2 MG CAPSULE PO PRN ×2 (19:00)
[2018-03-02] MEDS ORDERED: ONDANSETRON 4 MG/2 ML VIAL IM PRN (19:00)
[2018-03-02] MEDS ORDERED: MAGNESIUM HYDROXIDE 30 ML LIQUID UDC PO PRN (19:00)
--- NOTE | 2018-03-02 19:15 | NUR ---
ADMISSION NOTE Pt arrived on the unit at 1822 for medically supervised withdrawal from ETOH, benzos and opiates. Pre admission and skin/body check completed by day shift. Skin intact and no contraband found. Pt has redness in lower back from sunburn. Pt provided UDS and blood draw. UDS positive for opiates and blood alcohol 0.0%. Initial CIWA 23 and COWS 16. Pt presents with anxiety, restlessness, difficulty staying still, tremors, sweats, severe body aches, nausea with no episodes of vomiting, runny nose, headache, tactile disturbances in hands, slumped posture, and elevated BP. Pt reports that these are his typical S/S of withdrawal. Pt is 511 and weighs 180 lbs. Pt is ambulatory with steady gait. PEERLA. Respirations even and unlabored, lung sounds clear. Pt reports last BM yesterday. Vital signs: BP: 147/62, HR 77, T 98.2, RR 17, 02 97% and pain 9/10 for generalized body aches and headache. Substance Use History: 1. ETOH (Cuong Camacho) 300 ml daily, last intake of 300 ml today at 1100, at this rate for 1 month. Pt relapsed after discharge from [facility] on 02/02/18. Pt started drinking 15 years ago. 2. Xanax 10 mg PO daily for 1 month, last intake of 8 mg on 02/28/18, at this rate for 1 month. Pt started using Xanax recently. 3. Heroin 2 g IV daily for 1 month, last intake of 2 g this morning, at this rate for 1 month. Pt started using heroin 11 years ago. Pt reports that he also has hx of methamphetamine use, but reports not using it this month since his last relapse. Pt reports that after he left [facility] 1 month ago, he didnt continue with treatment and relapsed right away. Pt reports the following treatment history: [facility] x 4 in January 2018, December 2017, August 2017 and May 2017, [facility] in [place] in Jun 2017 and [facility] in [place] in 2015. Pt reports having 15-20 attempts at sobriety. Pt reports difficulty staying sober d/t peer influences, cravings, and being bored. Pt reports that using has made my life nonexistent, I have no job, no place to live, and all my relationships are messed up. Pt reports that this admission will be different, I want to take this treatment seriously and actually goI am 28 years old now and its time to get on with my life and get it togetherI would love to have a steady job, a and kids. Pt also stated, I want to go back to [facility] and continue going to consistently. Pt reports having hx of one seizure r/t ETOH withdrawal (2016 with no medical treatment), withdrawal induced delirium (2017 with no medical treatment), overdose on heroin and oxycodone x 15-20 with medical treatment and frequent blackouts from ETOH. Pt denies hx of psychiatric holds or SI. Pt is full code, regular diet, NKA to food or medications, and on fall/seizure precautions. Pt reports PMH of anxiety, depression insomnia and collar bone fracture in 2010. Pt takes Celexa 40 mg for depression and Seroquel 100 mg for insomnia. Pt reports his psychiatrist is Dr. Bandar Mendez. Pt is a current smoker, denies wanting to quit at this time. Pt is a candidate for MRSA d/t being at [facility] less than 30 days ago, d/c date February 02, 2018. Pt currently lives in [facility] and is homeless, sleeping on couches. Pt reports having a limited support system. Pt is a candidate for MRSA d/t being in treatment facility within past 30 days, MRSA swab collected and sent to lab. Encouraged pt to be open and honest in his recovery. Oriented pt to room and unit, educated pt about rules and expectations of the unit and how to use the call light.
[2018-03-02] MEDS ORDERED: DIAZEPAM 10 MG TABLET PO PRN (19:45)
[2018-03-02] MEDS ORDERED: DIAZEPAM 5 MG TABLET PO PRN (19:45)
[2018-03-02 20:00] VITALS: BP 147/62
[2018-03-02 20:03] LABS: *AMPHETAMINE, URINE NEGATIVE (NEGATIVE); *BARBITURATE, URINE NEGATIVE (NEGATIVE); *CANNABINOID, URINE NEGATIVE (NEGATIVE); *COCCAINE, URINE NEGATIVE (NEGATIVE); *OPIATE, URINE POSITIVE (NEGATIVE); *PHENCYCLIDINE SCREEN,URINE NEGATIVE (NEGATIVE)
[2018-03-02] MEDS: DIAZEPAM 10 MG TABLET PO PRN (20:10)
[2018-03-02] MEDS: ONDANSETRON ODT 4 MG TAB.RAPDIS SL PRN (20:10)
[2018-03-02] MEDS: METHOCARBAMOL 750 MG TABLET PO PRN (20:10)
[2018-03-02] MEDS: BUPRENORPHINE HCL 2 MG TAB.SUBL SL PRN (20:10)
--- NOTE | 2018-03-02 20:10 | NUR ---
PRN VALIUM, SUBUTEX, ROBAXIN AND ZOFRAN ADMINISTRATION CIWA 23 and COWS 16. PRN Valium 20 mg and Subutex 4 mg administered. Pt presents with anxiety, restlessness, difficulty staying still, tremors, sweats, severe body aches, nausea with no episodes of vomiting, runny nose, headache, tactile disturbances in hands, slumped posture, and elevated BP. Safety measures in place. Call light within reach. Will continue to monitor.
[2018-03-02 20:33] LABS: BASOPHILS # (AUTO) 0.1 K/uL (0.0-8.0); BASOPHILS % (AUTO) 0.8 % (0.0-2.0); EOSINOPHILS # (AUTO) 0.1 K/uL (0.0-0.7); EOSINOPHILS % (AUTO) 0.9 % (0.0-7.0); HEMATOCRIT 45.6 % (36.7-47.1); HEMOGLOBIN 15.8 g/dL (12.5-16.3); LYMPHOCYTES % (AUTO) 14.4 % (20.5-51.5); MEAN CORPUSCULAR HEMOGLOBIN 31.1 uug (23.8-33.4); MEAN CORPUSCULAR HGB CONC 35 g/dL (32.5-36.3); MEAN CORPUSCULAR VOLUME 90.1 fL (73.0-96.2); MONOCYTES # (AUTO) 0.7 K/uL (2.0-10.0); MONOCYTES % (AUTO) 10.6 % (0.0-11.0); NEUTROPHILS # (AUTO) 5.2 K/uL (1.8-8.9); NEUTROPHILS % (AUTO) 73.3 % (38.5-71.5); PLATELET COUNT (AUTO) 143 K/uL (152-348); RED BLOOD CELL COUNT(AUTO) 5.06 MIL/uL (4.06-5.63)
[2018-03-02 20:38] LABS: ETHANOL < 3 MG/DL (0-0)
--- NOTE | 2018-03-02 20:40 | NUR ---
PRN SUBUTEX AND ZOFRAN REASSESSMENT COWS 12. Pt reports improvement in nausea, body aches, anxiety, restlessness and tactile disturbances. Safety measures in place. Call light within reach. Will continue to monitor.
[2018-03-02 20:44] LABS: ALANINE AMINOTRANSFERASE 32 U/L (16-63); ALKALINE PHOSPHATASE 72 U/L (50-136); AMYLASE 60 U/L (25-115); ASPARTATE AMINOTRANSFERASE 23 U/L (15-37); CARBON DIOXIDE 29 mmol/L (21-32); CHLORIDE 99 mmol/L (98-107); CREATININE 1.4 mg/dL (0.6-1.3); GLUCOSE 113 mg/dL (74-106); LIPASE 99 U/L (73-393); MAGNESIUM 1.7 mg/dL (1.8-2.4); POTASSIUM 3.7 mmol/L (3.5-5.1); TOTAL PROTEIN, SERUM 7.8 g/dL (6.4-8.2); UREA NITROGEN, BLOOD 13 mg/dL (7-18)
--- NOTE | 2018-03-02 21:10 | NUR ---
PRN VALIUM AND ROBAXIN REASSESSMENT CIWA 15. Pt presents with improvement in anxiety, restlessness, tremors, body aches. Safety measures in place. Call light within reach. Will continue to monitor.
[2018-03-02] MEDS ORDERED: MAGNESIUM OXIDE 400 MG TABLET PO ONE (22:00)
[2018-03-02] MEDS ORDERED: [UNRECOGNIZED DRUG - CODE] PO (23:10)
[2018-03-02] MEDS ORDERED: GLUT500T8 PO (23:10)
[2018-03-03] VITALS: BP 114/73
[2018-03-03] MEDS: DIAZEPAM 10 MG TABLET PO PRN ×3 (00:10→12:27)
[2018-03-03] MEDS: BUPRENORPHINE HCL 2 MG TAB.SUBL SL PRN ×3 (00:10→12:27)
--- NOTE | 2018-03-03 00:10 | NUR ---
PRN VALIUM 20 MG AND SUBUTEX 4 MG ADMINISTRATION COWS 15 and CIWA 20. Pt presents with anxiety, restlessness, tremors, sweats, chills, nausea, headache, tactile disturbances, body aches 6/10, yawning. Safety measures in place. Call light within reach. Will continue to monitor.
--- NOTE | 2018-03-03 00:40 | NUR ---
PRN SUBUTEX REASSESSMENT COWS 11. Pt presents with improved anxiety, body aches, tremors, nausea. Safety measures in place. Call light within reach. Will continue to monitor.
--- NOTE | 2018-03-03 01:10 | NUR ---
PRN VALIUM REASSESSMENT CIWA 16. Pt presents with improvement in anxiety, sweats, tremors, nausea. Safety measures in place. Call light within reach. Will continue to monitor.
[2018-03-03 04:00] VITALS: BP 131/76
--- NOTE | 2018-03-03 04:00 | NUR ---
CIWA/COWS DEFERRED Pt laying in bed with eyes closed, CIWA/COWS deferred, to be assessed when pt is awake per orders. Respirations even and unlabored. Safety measures in place. Call light within reach. Will continue to monitor.
[2018-03-03] MEDS ORDERED: CITA20TA19 PO (06:08)
--- NOTE | 2018-03-03 07:12 | NUR ---
END OF SHIFT Pt is a 28 y/o male admitted on 03/02/18 for ETOH, benzo and opiate withdrawal. No taper ordered at this time, has PRN Valium and Subutex available. Pt presented with anxiety, restlessness, difficulty staying still, tremors, sweats, severe body aches, nausea with no episodes of vomiting, runny nose, difficulty falling asleep, headache, tactile disturbances in hands, slumped posture, yawning, and elevated BP. Pt received PRN Valium 20 mg x 2, Subutex 4 mg x 2, Robaxin and Zofran odt. Last COWS 11 and CIWA 16. Pt slept 5 hours. Intake 1355 ml, void x 2, stool x 0. Safety measures in place. Call light within reach. Endorsed to day shift nurse.
[2018-03-03 08:00] VITALS: BP 114/72
--- NOTE | 2018-03-03 08:00 | NUR ---
Start of Shift Notes/COWS/CIWA Assessment: Received endorsement from night nurse. Patient is a 28 year old male admitted for ETOH and opiate withdrawal who was placed on PRNs Valium and Subutex at this time with taper need to be assessed by MD today. Per night report, patient was given PRN Valium 20 mg and Subutex 4 mg x 2, as well as Robaxin and Zofran. Last COWS 11/CI 16. Patient was seen in his room. Restlessness noted while in bed. He appears flushed and diaphoretic with moderate pupil dilation. He appears to talk in his sleep. Speech is pressured with flight of ideas. No AV hallucinations noted. Denies S/I or H/I noted. He currently complains of 6/10 muscle aches and nausea. He complains of anxiety and chest tightness due to anxiety. VS stable. COWS 18/CIWA 21. Educated patient on his current plan of care for the day and his medication regimen. Encouraged oral fluid intake and encouraged group participation to learn new skills to prevent relapse. All needs met and attended. Will continue to monitor.
[2018-03-03] MEDS: FOLIC ACID 1 MG TABLET PO SCH (08:27)
[2018-03-03] MEDS: THIAMINE HCL 100 MG TABLET PO SCH (08:27)
[2018-03-03] MEDS: METHOCARBAMOL 750 MG TABLET PO PRN ×2 (08:28→20:33)
[2018-03-03] MEDS: ONDANSETRON ODT 4 MG TAB.RAPDIS SL PRN (08:28)
[2018-03-03] MEDS: MULTIVITAMINS,THERAPEUTIC TABLET PO SCH (08:28)
--- NOTE | 2018-03-03 08:28 | NUR ---
Robaxin 750 mg/Valium 20mg/Subutex 4 mg/Zofran 4 mg ODT given: Patient complains of 6/10 myalgia and nausea. No emesis noted. CIWA 21 and COWS 18. Medicated patient with the above meds. Will monitor for effectiveness.
--- NOTE | 2018-03-03 08:58 | NUR ---
Re-assessment: Subutex COWS 13, patient still noted with restlessness while in bed, facial flushing, gross tremors, yawning, anxiety, agitation and nasal stuffiness. PRN Subutex effective in reducing withdrawal symptoms.
[2018-03-03] MEDS ORDERED: TUBERCULIN,PURIF.PROT.DERIV. 5 TU/0.1 ML TEST ID ONE (09:00)
--- NOTE | 2018-03-03 09:28 | NUR ---
Re-assessment: Zofran/Robaxin/Valium Patient verbalizes relief from nausea and rates his pain a 3 out of 10 at this time. CIWA 16. He continues to present with gross tremors, anxiety, agitation, restlessness, and diaphoresis. PRN Zofran, Robaxin and Valium were effective.
[2018-03-03] MEDS ORDERED: 4 DAY TAPER BUPRENORPHINE -SERENITY PROTOCOL SL PRN (09:30)
[2018-03-03] MEDS ORDERED: 4 DAY TAPER OF LORAZEPAM -SERENITY PROTOCOL PO PRN (09:30)
--- NOTE | 2018-03-03 11:10 | NUR ---
MD Communication: Taper orders Patient will initiate a 4-day Ativan and 4-day Subutex taper to start today at 1500. Orders noted and carried out. Patient education providecd.
[2018-03-03 12:00] VITALS: BP 93/69
--- NOTE | 2018-03-03 12:27 | NUR ---
COWS/CIWA Assessment/Valium 20 mg/Subutex 4 mg SL given: COWS13/CIWA 16, patient continues to complain of generalized discomfort. Stating "I feel like a hot mess. My body is so drained." Noted with malaise, fatigue, restlessness, pupil dilation, dry heaving, increased anxiety and agitation. Medicated patient with Valium 20 mg PO and Subutex 4 mg SL as ordered. Will monitor for effectiveness.
--- NOTE | 2018-03-03 12:57 | NUR ---
Re-assessment: Subutex COWS 10, patient continues to present with s/s of withdrawal m/b gross tremors, anxiety, agitation, restlessness, myalgia and generalized discomfort. PRN Subutex has been effective in reducing his withdrawal symptoms.
--- NOTE | 2018-03-03 13:27 | NUR ---
Re-assessment: Valium CIWA 14, patient continues to present with s/s of withdrawal mb restlessness, anxiety, agitation, chills, hot flashes, myalgia and difficulty concentrating. PRN Valium effective in reducing his withdrawal symptoms. Will continue to monitor.
[2018-03-03] MEDS: BUPRENORPHINE HCL 2 MG TAB.SUBL SL SCH ×2 (14:02→20:34)
[2018-03-03] MEDS: LORAZEPAM 1 MG TABLET PO SCH ×2 (14:02→20:33)
[2018-03-03 16:00] VITALS: BP 104/53
--- NOTE | 2018-03-03 16:11 | NUR ---
COWS/CIWA Assessment: COWS 10/CIWA 14, patient continues to complain of generalized discomfort. Noted with malaise, fatigue, restlessness, pupil dilation, dry heaving, increased anxiety, agitation, diaphoresis and facial flushing. Will monitor for effectiveness.
--- NOTE | 2018-03-03 19:04 | NUR ---
End of Shift Notes: Patient initiated his 4-day Ativan and 4-day Subutex taper as ordered. No adverse reactions noted. VS monitored closely. No significant abnormalities noted. Withdrawal symptoms were closely monitored. Initial COWS 19/CIWA 21, patient presented with restlessness, gross tremors, pupil dilation, diaphoresis, facial flushing, nausea, myalgia, difficulty concentrating, episodes of somnolence, yawning and runny nose. Medicated patient with Zofran, Robaxin, Valium and Subutex as ordered at 0828 and Valium 20 mg and Subutex 4 mg SL at 1227 with help. Last COWS /CIWA 13. Patient verbalizes that SUbutex and Ativan has been effective in reducing his withdrawal symptoms. He was unable to participate in group and activities due to his withdrawal symptoms. Appetite fair. All needs met and attended. Will continue to monitor closely.
--- NOTE | 2018-03-03 19:30 | NUR ---
START OF SHIFT Pt is a 28 y/o male admitted for medically supervised withdrawal from ETOH, Benzos and Opiates. He was started on a 4 day Ativan and 4 day Subutex taper today and has tolerated well. Last COWS=10, CIWA=13.Per report, Pt was medicated with Zofran, Robaxin, Valium and Subutex as ordered and were effective in reducing withdrawal symptoms.Pt is A/A/O X 4, received in room,c/o feeling anxious and restless with muscle aches and pain.PO fluids encouraged; encouraged to verbalize needs and concerns. Safety measures in place. Call light within reach. Will continue to monitor.
[2018-03-03 20:00] VITALS: BP 116/62
--- NOTE | 2018-03-03 20:00 | NUR ---
COWS/CIWA Assessment: COWS 10/CIWA 10, patient continues to complain of generalized discomfort, malaise, fatigue,anxiety and restlessness; Will continue to medicate per orders.
[2018-03-03] MEDS: QUETIAPINE FUMARATE 100 MG TABLET PO SCH (20:33)
--- NOTE | 2018-03-03 20:37 | NUR ---
PRN Robaxin 750 mg po given for muscle aches and pain; will monitor for effectiveness.
[2018-03-03] MEDS ORDERED: CITALOPRAM 20 MG TABLET PO SCH (21:00)
--- NOTE | 2018-03-03 21:30 | NUR ---
PRN ROBAXIN IS EFFECTIVE.PT VERBALIZES "FELLING BETTER".
[2018-03-04] VITALS: BP 109/63
--- NOTE | 2018-03-04 | NUR ---
CIWA/COWS DEFERRED Pt is lying in bed with eyes closed, CIWA/COWS deferred d/t pt being asleep. Respirations even and unlabored. Safety measures in place. Call light within reach. Will continue to monitor.
--- NOTE | 2018-03-04 04:00 | NUR ---
CIWA/COWS DEFERRED Pt is lying in bed with eyes closed, CIWA/COWS deferred d/t pt being asleep. Respirations even and unlabored, v/s refused.Safety measures in place. Call light within reach. Will continue to monitor.
--- NOTE | 2018-03-04 07:00 | NUR ---
END OF SHIFT Pt is a 28 y/o male admitted for medically supervised withdrawal from ETOH, benzos and opiates. He was started on a 4 day Ativan and 4 day Subutex taper yesterday and has tolerated well. Last COWS=10, CIWA=10. Pt is med compliant. Pt was medicated with routine medications and PRN Robaxin with good effect.Pt slept 9 hours, fluid intake was 1500 ml ,voided x 2 .Pt is A/O X 4. Safety measures in place. Call light within reach. Will continue to monitor.
--- NOTE | 2018-03-04 07:35 | NUR ---
START OF SHIFT Pt is a 28 yr old male, AA&Ox4 Pt was admitted on 03/02/18 for ETOH/Benzo/Opiate withdrawal and is on 4 day Ativan and 4 day Subutex taper as ordered. Received report from financial operations clerk nurse. Pt received Robaxin PRN during the night for muscle aches. Last COWS score was 10 and CIWA score was 11. Pt slept for 9 hrs. Pt remains in bed resting with respirations even and unlabored. Skin is intact, warm and dry to touch. Pt's room is noted disheveled with dirty clothes on the floor. Safety precautions observed. Call light is within reach. Will continue to monitor.
[2018-03-04 08:00] VITALS: BP 114/57
[2018-03-04] MEDS: THIAMINE HCL 100 MG TABLET PO SCH (08:44)
[2018-03-04] MEDS: LORAZEPAM 1 MG TABLET PO SCH ×4 (08:44→20:33)
[2018-03-04] MEDS: MULTIVITAMINS,THERAPEUTIC TABLET PO SCH (08:45)
[2018-03-04] MEDS: CITALOPRAM 20 MG TABLET PO SCH (08:45)
[2018-03-04] MEDS: FOLIC ACID 1 MG TABLET PO SCH (08:45)
--- NOTE | 2018-03-04 08:51 | NUR ---
COWS AND CIWA ASSESSMENT Pt was c/o of generalized body aches 12/28. No facial grimacing is observed. Pt was encouraged to attend group therapy during the day but pt states, "I don't have to go today, I'm excused". Pt was observed laying in bed, relaxed. Skin is warm and dry to touch. Pt was stating he was experiencing heavy withdrawal symptoms. When asked what symptoms was he experiencing pt would state, "I am feeling everything". When asked again to elaborate his symptoms pt continues to state, "I am feeling everything, muscle aches, chills, dizziness, everything". Pt was then observed watching TV and laughing. COWS score was 5, CIWA score 4. pt was encouraged increase fluid intake for hydration. Will continue to monitor.
[2018-03-04] MEDS ORDERED: BUPRENORPHINE HCL 2 MG TAB.SUBL SL SCH (09:00)
[2018-03-04 10:11] LABS: HEPATITIS B SURFACE AG Negative (Negative)
[2018-03-04 12:00] VITALS: BP 102/69
--- NOTE | 2018-03-04 12:00 | NUR ---
COWS AND CIWA ASSESSMENT Pt is c/o anxiety, muscle aches and sweats. COWS score was 6 and CIWA score is 6. Encouraged increase fluid intake. Will continue to monitor.
--- NOTE | 2018-03-04 13:28 | NUR ---
Therapist prompted client to attend all group therapy sessions.
[2018-03-04] MEDS: BUPRENORPHINE HCL 2 MG TAB.SUBL SL SCH ×2 (14:52→20:34)
[2018-03-04 16:00] VITALS: BP 136/82
--- NOTE | 2018-03-04 19:10 | NUR ---
END OF SHIFT Pt is a 28 yr old male, AA&Ox4. Pt was admitted on 03/02/18 FOR ETOH/Benzo/Opiate withdrawal and is on 4 day Ativan taper and 4 day Subutex taper as ordered. Pt has been c/o anxiety, agitation, sweats and muscle aches. No PRNs were given during the day, Last COWS score was 10 and CIWA was 8 at 1600. Pt was encouraged to attend group therapy. Safety precautions observed. Call light is within reach. Endorsed to shiftman nurse to continue with care.
--- NOTE | 2018-03-04 19:30 | NUR ---
START OF SHIFT Pt is a 28 y/o male admitted for medically supervised withdrawal from ETOH, Benzos and Opiates. He continues on a 4 day Ativan and 4 day Subutex taper as ordered and has tolerated well. Last COWS=10, CIWA=8.Pt is A/A/O X 4, received in room, c/o feeling anxious and restless with muscle aches and pain and hot/cold flashes. No PRN meds were given during the day.Pt is med compliant and has been attending groups.PO fluids encouraged; encouraged to verbalize needs and concerns. Safety measures in place. Call light within reach. Will continue to monitor.
[2018-03-04 20:00] VITALS: BP 134/68
--- NOTE | 2018-03-04 20:00 | NUR ---
COWS=10; CIWA=8 Pt is c/o anxiety,restlessness,muscle aches,pain,hot and cold flashes,will continue to medicate per orders.
[2018-03-04] MEDS: METHOCARBAMOL 750 MG TABLET PO PRN (20:33)
--- NOTE | 2018-03-04 20:33 | NUR ---
PRN Clonidine 0.1 mg po given for anxiety/hot and cold flashes;PRN Robaxin 750 mg po given for myalgia; will continue to monitor.
--- NOTE | 2018-03-04 21:30 | NUR ---
PRN REASSESSMENT Pt verbalizes a decrease in anxiety,restlessness,aches and pain,states "feeling better"; will continue to monitor.
[2018-03-04] MEDS: QUETIAPINE FUMARATE 100 MG TABLET PO SCH (22:13)
--- NOTE | 2018-03-05 | NUR ---
CIWA/COWS DEFERRED Pt is lying in bed with eyes closed, CIWA/COWS deferred d/t pt being asleep.V/S refused per Pt request. Respirations even and unlabored. Safety measures in place. Call light within reach. Will continue to monitor.
--- NOTE | 2018-03-05 06:47 | NUR ---
END OF SHIFT Pt is a 28 y/o male admitted for medically supervised withdrawal from ETOH, Benzos and Opiates. He continues on a 4 day Ativan and 4 day Subutex taper as ordered and has tolerated well. Last COWS=10, CIWA=8.Pt is A/O X 4 was received in room, c/o feeling anxious and restless with muscle aches and pain and hot/cold flashes. PRN meds Clonidine and Robaxin were given during the night and were effective.Pt slept 7 hours,fluid intake was 1601 ml,voided x 5.Pt is med compliant and has been attending groups.PO fluids encouraged; Safety measures in place. Call light within reach. Will continue to monitor.
[2018-03-05 08:00] VITALS: BP 113/53
--- NOTE | 2018-03-05 08:00 | NUR ---
START OF SHIFT Pt is a 28 year old male, AA&Ox4. Pt was admitted on 03/02/18 for ETOH/Benzo/ Opiate withdrawal and is on 4 day Ativan and 4 day Subutex taper as ordered. Received report from power and recovery shift engineer nurse. Pt received Clonidine PRN and Robaxin PRN during the night. Medication was effective. Pt slept for 8 hrs. Last COWS score was 10 and CIWA score was 8. Pt is currently in bed sleeping with respirations even and unlabored. Skin is intact, warm and moist to touch. Safety precautions observed. COWS score and CIWA score are being deferred until pt is awake. Will continue to monitor.
[2018-03-05] MEDS: MULTIVITAMINS,THERAPEUTIC TABLET PO SCH (09:34)
[2018-03-05] MEDS: BUPRENORPHINE HCL 2 MG TAB.SUBL SL SCH ×3 (09:35→23:06)
[2018-03-05] MEDS: CITALOPRAM 20 MG TABLET PO SCH (09:35)
[2018-03-05] MEDS: LORAZEPAM 1 MG TABLET PO SCH ×3 (09:35→23:06)
[2018-03-05] MEDS: FOLIC ACID 1 MG TABLET PO SCH (09:35)
[2018-03-05] MEDS: THIAMINE HCL 100 MG TABLET PO SCH (09:35)
--- NOTE | 2018-03-05 09:40 | NUR ---
COWS/CIWA ASSESSMENT Pt is in bed resting. pt is observed flushed and fine tremors. Pt is c/o anxiety, stuffy nose teary eyes and muscle aches. COWS score was 8 and CIWA score was 6. Pt was given Subutex 2mg SL and Ativan 1mg PO as ordered at 0900. Medication was j luis well. Will continue to monitor.
[2018-03-05 12:00] VITALS: BP 115/62
--- NOTE | 2018-03-05 12:00 | NUR ---
COWS AND CIWA DEFERRED Pt is currently in bed sleeping with respirations even and unlabored. RR is 16. COWS and CIWA assessment is deferred at this time. Will continue to monitor.
--- NOTE | 2018-03-05 14:10 | NUR ---
Therapist prompted client to attend group therapy.
--- NOTE | 2018-03-05 15:06 | NUR ---
COWS AND CIWA ASSESSMENT Pt is c/o anxiety, agitation, stuffy nose, muscle aches and sweats. Pt is observed with fine tremors. COWS score was 7 and CIWA score was 6. Encouraged increase fluid intake Will continue to monitor.
--- NOTE | 2018-03-05 15:10 | NUR ---
REFUSED LABS Pt had a new order for labs including CBC, CMP and Mg level per Dr. Bernstein. Pt was refusing for lab drawn to be done and states, "they already reynaldo blood, I don't need it again". Pt was spoken to by Dr. Bernstein the importance of lab work but pt continued to refuse.
[2018-03-05 16:00] VITALS: BP 116/68
--- NOTE | 2018-03-05 19:03 | NUR ---
END OF SHIFT Pt is a 28 yr old male, AA&Ox4. Pt was admitted on 03/02/18 for ETOH/Benzo/Opiate withdrawal and is on 4 day Ativan taper and 4 day Subutex taper as ordered. Pt has been observed with increase fatigue and was in bed resting throughout the day. Pt was encouraged to attend groups while awake but he refused to attend group therapy. Pt has been c/o anxiety, agitation, sweats and muscle aches. No PRNs were given during the day, Last COWS score was 5 and CIWA was 4 at 1600. Pt was encouraged increase fluid intake for hydration. Safety precautions observed. Call light is within reach. Endorsed to tablet tester nurse to continue with care.
--- NOTE | 2018-03-05 19:40 | NUR ---
Start of Shift Note Received a 28 y/o male px, admitted for medically supervised withdrawal from ETOH, Xanax and Heroin. Px was placed on 4 day Ativan taper and 4 day Subutex taper, started on 03/03/2018. Last reported COWS 5 and CIWA 4 by AM shift nurse. During the rounds at 1940, px is awake on bed in fowlers position, watching TV. Px appears anxious. He is disheveled. Snacks and drinks noted on top of his bed side table. Px states that his anxiety is 9/10 and he is having a generalized body aches of 7/10 and requesting Robaxin. He also complains of chills, sweats, and teary eyes. Mild bilateral hand tremors noted on extended arms. He is very vigilant about his medications. He wanted to know the schedule of his taper medicines and asked if he can get double dose of Ativan tonight. Taper program was explained to the client. Bed on lowest position, side rails up 2x and call light within reach. Well continue to monitor.
[2018-03-05 20:00] VITALS: BP 136/70
--- NOTE | 2018-03-05 20:00 | NUR ---
COWS 8 and CIWA 11 Upon assessment, px appears anxious. Px states that his anxiety is 9/10 and he is having a generalized body aches of 7/10. He also complains of chills, sweats, and teary eyes. Mild bilateral hand tremors noted on extended arms. ME= 71. will continue to monitor
[2018-03-05] MEDS: METHOCARBAMOL 750 MG TABLET PO PRN (23:05)
--- NOTE | 2018-03-05 23:05 | NUR ---
PRN Robaxin Px received Robaxin 750 mg PO for generalized body aches of 7/10. To reassess after an hour.
[2018-03-05] MEDS: QUETIAPINE FUMARATE 100 MG TABLET PO SCH (23:06)
[2018-03-06] VITALS: BP 126/74
--- NOTE | 2018-03-06 | NUR ---
COWS and CIWA deferred COWS and CIWA deferred due to the px is asleep, to assess if the px is awake per doctor's order.
--- NOTE | 2018-03-06 00:05 | NUR ---
PRN Robaxin reassessment Assessment deferred due to the px is asleep. will continue to monitor
--- NOTE | 2018-03-06 02:30 | NUR ---
Px wakes up Px appears anxious and asked to smoke. Px states that his anxiety is 6/10 and he is having a generalized body aches of 4-5/10. He complains of chills, sweats, and teary eyes. Mild bilateral hand tremors noted on extended arms. [place]= 76. COWS 7 and CIWA 10. will continue to monitor
[2018-03-06 04:00] VITALS: BP 129/78
--- NOTE | 2018-03-06 04:00 | NUR ---
COWS 7 and CIWA 10 On assessment, px appears anxious. Px states that his anxiety is still 6/10, body aches of 4-5/10. He still complains of chills, sweats, and teary eyes. Mild bilateral hand tremors noted on extended arms. ME= 78. will continue to monitor
--- NOTE | 2018-03-06 07:05 | NUR ---
End of shift Note During the shift at 2305, px received Robaxin 750 mg PO for 7/10 generalized body aches. It was effective. Oral intake of 1200 ml, voided 2x with 1x BM. Px slept for 7 hours. Last COWS 7 and CIWA 10. Bed on lowest position, bed rails up 2x with padding and call light within reach. Px endorsed to AM shift nurse.
--- NOTE | 2018-03-06 07:09 | NUR ---
Start Of Shift Report received from shift supervisor rn nurse. Pt is a 28 y/o male, admitted for medically supervised withdrawal from ETOH, Xanax and Heroin. Per shift supervisor rn nurse pt's last CIWA was 10, COWS 7. Pt continues his 4 day Ativan and 4 day Subutex tapers. Upon start of shift pt noted laying in his bed watching TV, resting, breathing even and unlabored. When greeted pt stated Im a bit fatigued right now im not sure why, are you going to pass Meds soon?". Pt's room appears unorganized and messy. Pt appears disheveled. Pt appears anxious, withdrawn, sweaty and flushed. During assessment, pt is AOx4. Lung sounds clear bilaterally. Radial pulse is regular and non-bounding. Abdomen soft and non-tender. Pt's skin is warm and intact. Pt denies any pain at the moment. Encouraged pt to drink plenty of fluids to compensate for the water lost through sweat, keep hydrated and help with the detox process. Pt received PRN Robaxin 750mg for muscle pain, medication effective per shift supervisor rn nurse. Pt slept a total of 7 hours last night. Bed in lowest position. Side rails up x2. Call light functioning and within reach. All needs attended and met. Will continue to monitor.
[2018-03-06 08:00] VITALS: BP 124/82
[2018-03-06] MEDS ORDERED: BUPRENORPHINE HCL 2 MG TAB.SUBL SL SCH (09:00)
[2018-03-06] MEDS: FOLIC ACID 1 MG TABLET PO SCH (09:41)
[2018-03-06] MEDS: MULTIVITAMINS,THERAPEUTIC TABLET PO SCH (09:41)
[2018-03-06] MEDS: LORAZEPAM 1 MG TABLET PO SCH ×2 (09:41→20:09)
[2018-03-06] MEDS: CITALOPRAM 20 MG TABLET PO SCH (09:41)
[2018-03-06] MEDS: THIAMINE HCL 100 MG TABLET PO SCH (09:41)
[2018-03-06 12:00] VITALS: BP 128/83
[2018-03-06] MEDS ORDERED: BUPRENORPHINE HCL 2 MG TAB.SUBL SL ONE ×3 (15:00→21:00)
[2018-03-06 16:00] VITALS: BP 125/80
--- NOTE | 2018-03-06 19:14 | NUR ---
End Of Shift Report given to night clerk nurse, Plan of care followed, Vital signs monitored closely Q4H. Withdrawals symptoms were closely monitored, medications given as schedule. Initial CIWA 11 COWS 8. Pt encouraged adequate PO fluid intake as tolerated to compensate for all the water lost in sweat as well as with helping speed up the detox process. Pt presented with diaphoresis, anxiety restless legs, yawning, agitation, emotional volatility and restlessness during the day. Pt received all of the scheduled medications. Pt did not receive any PRN medications during the day. Last CIWA was a 8 COWS 9. Pt reported that Subutex and Ativan have been working well at controlling the withdrawal symptoms. Pt ate all of the meals. Pt did not attend any groups or activities. Pt denies any SI/HI. All safety measures in place, bed in lowest locked position, call light within reach. All needs met and attended
--- NOTE | 2018-03-06 19:40 | NUR ---
Start of Shift Note Received a 28 y/o male px, admitted for medically supervised withdrawal from ETOH, Xanax and Heroin. Px was placed on 4 day Ativan taper and 4 day Subutex taper, started on 03/03/2018. Last reported COWS 9 and CIWA 8 by AM shift nurse. During the rounds at 1940, px is awake on bed in fowlers position, watching TV. Px appears anxious. He is disheveled. Different kind of drinks noted on top of his bed side table. Px states that his anxiety is 7/10 and he is having a generalized body aches of 5/10 and requesting Robaxin. He also complains of chills, sweats, stuffy nose and teary eyes. Mild bilateral hand tremors noted on extended arms. Bed on lowest position, side rails up 2x and call light within reach. Well continue to monitor.
[2018-03-06 20:00] VITALS: BP 110/69
--- NOTE | 2018-03-06 20:00 | NUR ---
COWS 9 and CIWA 11 Upon assessment, px appears anxious. Px states that his anxiety is 7/10 and he is having a generalized body aches of 5/10. He also complains of chills, sweats, stuffy nose and teary eyes. [place]= 74. will continue to monitor
[2018-03-06] MEDS: QUETIAPINE FUMARATE 100 MG TABLET PO SCH (20:09)
[2018-03-06] MEDS: METHOCARBAMOL 750 MG TABLET PO PRN (20:09)
--- NOTE | 2018-03-06 20:09 | NUR ---
PRN Robaxin Px received Robaxin 750 mg PO for generalized body aches of 5/10. To reassess after an hour.
--- NOTE | 2018-03-06 21:10 | NUR ---
USHA Correa reassessment Px states that his body aches improved from 5/10 to 3/10. will continue to monitor
[2018-03-07] VITALS: BP 103/66
--- NOTE | 2018-03-07 | NUR ---
COWS and CIWA deferred COWS and CIWA deferred due to the px is asleep, to assess if the px is awake per doctor's order. will continue to monitor
[2018-03-07 04:00] VITALS: BP 106/66
--- NOTE | 2018-03-07 07:05 | NUR ---
End of Shift Note During the shift at 2008, px received Robaxin 750 mg PO for body aches. It was effective. Oral intake of 2000 ml, voided 4x and BM 2x. Px slept for 8 hours. Last COWS 9 and CIWA 11. Bed on lowest position, side rails up 2x and call light within reach. Px endorsed to AM shift nurse.
[2018-03-07 08:00] VITALS: BP 125/78
--- NOTE | 2018-03-07 08:00 | NUR ---
Start of Shift Notes// Assessment: Received report from night nurse. Patient is a 28 year old male admitted for opiate and BZO withdrawal who was placed on a 4-day Ativan and 4-day Subutex taper as ordered. Tolerating taper well. Per night report, patient was given PRN Robaxin during the night. Last . Received patient in his room. Awake, alert and verbally responsive. Oriented x 4. Denies S/I or H/I noted. No AV hallucinations noted. Patient appears irritated and anxious demanding to go smoke. Patient education provided regarding the unit's smoking policy regarding smoking schedules. Room is messy with cookie crumbs all over the bed side table. Empty orange juice and water bottles noted on the floor. Encouraged patient to increased personal hygiene and maintain his space. He appears flushed with noted nasal stuffiness. and is currently complaining of 6/10 myalgia. Educated patient on his current plan of care for the day and his medication regimen. Encouraged oral fluid intake and encouraged group participation to learn new skills to prevent relapse. All needs met and attended. Will continue to monitor and medicate patient as ordered.
[2018-03-07] MEDS: CITALOPRAM 20 MG TABLET PO SCH (08:10)
[2018-03-07] MEDS: MULTIVITAMINS,THERAPEUTIC TABLET PO SCH (08:10)
[2018-03-07] MEDS: METHOCARBAMOL 750 MG TABLET PO PRN (08:10)
[2018-03-07] MEDS: THIAMINE HCL 100 MG TABLET PO SCH (08:10)
[2018-03-07] MEDS: FOLIC ACID 1 MG TABLET PO SCH (08:10)
--- NOTE | 2018-03-07 08:10 | NUR ---
Robaxin 750 mg PO given: Patient noted with complain of 6/10 generalized myalgia related to opiate withdrawal. Non-pharmacological interventions provided but ineffective. Medicated patient with Robaxin 750 mg PO as ordered. Will monitor for effectiveness.
[2018-03-07] MEDS ORDERED: BUPRENORPHINE HCL 2 MG TAB.SUBL SL ONE (09:00)
[2018-03-07] MEDS ORDERED: LORAZEPAM 1 MG TABLET PO ONE (09:00)
--- NOTE | 2018-03-07 09:10 | NUR ---
Re-assessment: Robaxin Patient verbalizes relief from myalgia. He rates his pain a 3 out of 10 at this time. PRN Robaxin was effective.
--- NOTE | 2018-03-07 10:42 | NUR ---
Therapist prompted client to attend group therapy sessions.
[2018-03-07 12:00] VITALS: BP 123/89
--- NOTE | 2018-03-07 12:30 | NUR ---
COWS/CIWA Assessment: COWS 8/CIWA 10, patient continues to present with s/s of withdrawal m/b gross tremors, myalgia, increased anxiety, agitation, chills, hot flashes, facial flushing and generalized discomfort. Offered PRNs but refused. Oral fluids pushed. Support provided.
[2018-03-07] MEDS ORDERED: CITA20TA19 PO (13:55)
[2018-03-07] MEDS ORDERED: QUET100T PO (13:55)
[2018-03-07 16:00] VITALS: BP 109/62
--- NOTE | 2018-03-07 16:04 | NUR ---
COWS/CIWA Assessment: COWS 8/CIWA 10, patient continues to present with restlessness, facial flushing, anxiety, agitation, myalgia and generalized discomfort. Support provided. Oral fluids encouraged.
--- NOTE | 2018-03-07 19:04 | NUR ---
End of Shift Notes: Patient completed his 4-day Ativan and 4-day Subutex taper as ordered. Will be discharging tomorrow. No adverse reactions noted. VS monitored closely. No significant abnormalities noted. Withdrawal symptoms were closely monitored. Initial COWS / 11, patient presented with restlessness, gross tremors, diaphoresis, facial flushing, , myalgia, difficulty concentrating, nasal stuffiness, chills and hot flashes. Medicated patient with Robaxin 750 mg PO at 0810 with help. Last COWS / 10. Patient verbalizes that Subutex and Ativan has been effective in reducing his withdrawal symptoms. Participated in group and activities during the day. Appetite good. All needs met and attended. Will continue to monitor closely.
--- NOTE | 2018-03-07 19:30 | NUR ---
START OF SHIFT Patient received awake alert and oriented x4. Patient expressed anxiety regarding discharge tomorrow 03/08/2018. Per endorsement patient has completed a 4 day ativan and 4 day subutex taper today. 2100 medications reviewed with patient and he verbalized understanding of meds. Last COWS is 8 and last CIWA is 10 per report. All needs attended to. Will continue to monitor.
--- NOTE | 2018-03-07 20:00 | NUR ---
CIWA/COWS Patient continues to present with S/S of opiate, ETOH and benzo withdrawal m/b intermittent chills and sweats, restlessness, tremulous to touch, yawning, anxiety, and agitation. CIWA is 10 and COWS is 7. Will continue to monitor.
[2018-03-07 20:52] VITALS: BP_SYST 111; BP_SYST 129; BP_DIAS 61; BP_DIAS 88
[2018-03-07] MEDS: QUETIAPINE FUMARATE 100 MG TABLET PO SCH (21:05)
--- NOTE | 2018-03-08 00:25 | NUR ---
Vitals and CIWA/COWS Patient refused vitals. Unable to complete CIWA/COWS as per order. Patient is noted in bed with eyes closed breathing even and unlabored. Will continue to monitor.
--- NOTE | 2018-03-08 00:56 | NUR ---
Vitals refused Patient noted returning from smoking patio. Vital signs were offered to be taken, but patient stated "I don't do my vital signs at night." Patient able to verbalize understanding of consequences of refusal. Will continue to monitor.
--- NOTE | 2018-03-08 04:33 | NUR ---
Vitals and CIWA/COWS Deferred Patient refused vitals to be taken and unable to assess CIWA and COWS. He was noted to be lying in bed with eyes closed respirations even and unlabored. Will continue to monitor.
--- NOTE | 2018-03-08 07:01 | NUR ---
END OF SHIFT: Patient is noted lying in bed with eyes closed and even, unlabored respirations. Patient denied S/S of withdrawal, but was noted with restlessness, irritability, and anxiety. Patient refused 0000 and 0400 vital signs and CIWA/COWS assessments. Patient remains on PRN medication regimen to manage symptoms of withdrawal. Patient completed his regimen of tapered Ativan and Subutex. Last noted CIWA was 10 and COWS was 7. All needs attended to promptly. Will endorse to continue plan of care as ordered.
[2018-03-08 08:00] VITALS: BP 117/60
--- NOTE | 2018-03-08 08:00 | NUR ---
Start of Shift Notes/COWS/CIWA Assessment: Received report from night nurse. Patient is a 28 year old male admitted for opiate and BZO withdrawal who was placed on a 4-day Ativan and 4-day Subutex taper as ordered. Tolerating taper well. Per night report, patient was given PRN Robaxin during the night. Last COWS / 10. Received patient in his room. Awake, alert and verbally responsive. Oriented x 4. Denies S/I or H/I noted. No AV hallucinations noted. Appears irritated but redirectable. Patient education provided regarding the unit's smoking policy regarding smoking schedules. Room is messy with food all over the bed side table. Empty water bottles noted on the floor. Encouraged patient to increased personal hygiene and maintain his space. COWS /CI 7. Educated patient on the discharge process. Patient verbalized good understanding. All needs met and attended. Will continue to monitor and medicate patient as ordered.
[2018-03-08] MEDS: CITALOPRAM 20 MG TABLET PO SCH (08:47)
[2018-03-08] MEDS: THIAMINE HCL 100 MG TABLET PO SCH (08:47)
[2018-03-08] MEDS: FOLIC ACID 1 MG TABLET PO SCH (08:47)
[2018-03-08] MEDS: MULTIVITAMINS,THERAPEUTIC TABLET PO SCH (08:47)
--- NOTE | 2018-03-08 10:12 | NUR ---
Discharged: Patient education provided regarding patient's discharge instructions. He denies S/I or H/I. Denies AV hallucinations noted. VS stable. COWS 7/CIWA 7. All clothing, medications and valuables were returned to the patient. DC paperwork signed. Patient verbalized good understanding of all teachings. Picked up by [facility] to be transported to [facility]. Patient left in stable condition.
== END 2018-03-08 10:12 | disposition other institution (70) | DRG 895 ==
LOC: SRC 17:32
PROVIDERS: ADMIT Family Medicine Addiction Medicine; ATTEND Internal Medicine
PROC: HZ2ZZZZ Detoxification Services for Substance Abuse Treatment (ICD-10-PCS; principal; 2018-03-02)
PROC: HZ31ZZZ Individual Counseling for Substance Abuse Treatment, Behavioral (ICD-10-PCS; 2018-03-05)
DX: F10.231 Alcohol dependence with withdrawal delirium (principal); F11.23 Opioid dependence with withdrawal; Y90.0 Blood alcohol level of less than 20 mg/100 ml; F13.230 Sedative, hypnotic or anxiolytic dependence with withdrawal, uncomplicated; G47.00 Insomnia, unspecified; E86.0 Dehydration; F17.210 Nicotine dependence, cigarettes, uncomplicated; Z59.0 Homelessness; F41.1 Generalized anxiety disorder; D69.6 Thrombocytopenia, unspecified; E83.42 Hypomagnesemia; F15.10 Other stimulant abuse, uncomplicated; F32.9 Major depressive disorder, single episode, unspecified
CPT/HCPCS: 36415; 80307; 80361; 83690; 83735; 85025; 86580; 86592; 86705; 86803; 87340; 87806; 93005; A4663; G0480; Q0162; Q0163